=== PATIENT | male | born 1960 | race Caucasian/White ===

== ENCOUNTER 2019-04-19 11:27 | Inpatient (IN) | payer OTHER ==
[2019-04-19] MEDS ORDERED: SODIUM CHLORIDE 1,000 ML IV STA (12:11)
--- NOTE | 2019-04-19 12:13 | PDOC ---
History of Present Illness - General History Source: Patient Exam Limitations: No Limitations, Clinical Condition - History of Present Illness Initial Comments: Orlin Moraes is a 59 yo M w a hx of non-Hodgkin lymphoma 15 years ago in remission not on medications, BPH, and HTN who presents to the [facility] er with 3 weeks of diffuse head and neck pain. The patient states when he bends over his head hurts and he gets a bad headache. The headaches come and go around 5-10 times a day. They feel like diffuse pressure sensations. The patient also says he has been losing weight over the past 3 weeks as well as feels generalized malaise and a significant amount of generalized weakness. He feels nauseous most of the time and has not been able to eat well. He states the headaches come on gradually, are not sudden in onset, and last anywhere between 30 minutes to many hours. Before coming to the hospital today the patient went to his cardiologists office - Dr. Cardenas who said everything is fine except he has a LBBB which has been present for many years without changes or worsening. MEDS: He has not taken any Tylenol yet today but states he has occasionally taken 3 or 4 thousand MG of tylenol on other days this week. He does not believe the tylenol has been helping his headaches very much. He was prescribed Losartan by his prior PCP for hypertension but he has not been adherent with his losartan because he thinks it makes him feel weird and contributes to his headaches. He reports that he was prescribed bactrim by his urologist which he is supposed to take 2 days before going through a transrectal biopsy of his prostate which he has yet to schedule. The patient has taken his bactrim early because he was concerned that he had meningitis from these headaches although he denies ever having fevers. He does endorse occasional chills from time to time. Lastly, he states that he takes between 25 and 100 mg of benadryl every night before bed. The patient is also taking a significant amount of oxymetazoline every night for sinus congestions as well as phenylephrine. He denies any numbness, tingling, unilateral weakness (But endorses generalized weakness). Denies facial weakness, word slurring, chest pain, SOB, difficulty breathing, vomiting, diarrhea, or constipation. Denies blurry vision. PCP: Rhett Mccracken Mold Checker: Dr. Cardenas PSH: Varicocelectomy Social Hx: Lives in an apartment by himself and is independent in his ADL. Former alcohol drinker. Denies any alcohol cigarettes or illicit drug usage in the past 3 weeks. Allergies: ragweed, dust, pollen, NKDA <Esvin Martínez - Last Filed: 04/19/19 22:07> <Kena Samayoa - Last Filed: 04/20/19 09:27> - General Chief Complaint: Weakness Stated Complaint: PAIN Time Seen by Provider: 04/19/19 11:58 Past History - Past Medical History COPD: No - Psycho Social/Smoking Cessation Hx Smoking History: Never smoked <Esvin Martínez - Last Filed: 04/19/19 22:07> <Kena Samayoa - Last Filed: 04/20/19 09:27> - Past Medical History Allergies/Adverse Reactions: Allergies Allergy/AdvReac Type Severity Reaction Status Date / Time No Known Allergies Allergy Verified 04/19/19 11:48 Home Medications: Ambulatory Orders Diphenhydramine [Benadryl -] mg PO HS 04/19/19 Ergocalciferol (Vitamin D2) [Vitamin D2] 1 tab PO WEEKLY 04/19/19 Losartan Potassium [Cozaar -] 50 mg PO DAILY 04/19/19 Montelukast Sodium [Singulair] 10 mg PO HS 04/19/19 Oxymetazoline 0.05% Nasal Soln [Afrin -] 2 spray NS BID 04/19/19 Phenylephrine HCl [Sinus PE Decongestant] 10 mg PO ASDIR 04/19/19 Vitamin B Complex 1 tab PO DAILY 04/19/19 Review of Systems - Review of Systems Able to Perform ROS?: Yes Comments:: CONSTITUTIONAL: Present: generalized weakness, malaise, loss of appetite, chills Absent: fever, diaphoresis HEENT: Absent: rhinorrhea, nasal congestion, throat pain, throat swelling, difficulty swallowing, mouth swelling, ear pain, eye pain, visual Changes CARDIOVASCULAR: Absent: chest pain, syncope, palpitations, irregular heart rate, lightheadedness , peripheral edema RESPIRATORY: Absent: cough, shortness of breath, dyspnea with exertion, orthopnea, wheezing, stridor, hemoptysis GASTROINTESTINAL: Present: Nausea Absent: abdominal pain, abdominal distension, vomiting, diarrhea, constipation, melena, hematochezia GENITOURINARY: Present: Hesitancy Absent: dysuria, frequency, urgency, hematuria, flank pain, genital pain MUSCULOSKELETAL: Absent: myalgia, arthralgia, joint swelling SKIN: Absent: rash, itching, pallor HEMATOLOGIC/IMMUNOLOGIC: Absent: easy bleeding, easy bruising, lymphadenopathy, frequent infections ENDOCRINE: Present: unexplained weight loss Absent: unexplained weight gain, heat intolerance, cold intolerance NEUROLOGIC: Present: Headache Absent: Focal weakness or paresthesias, dizziness, unsteady gait, seizure, mental status changes, bladder or bowel incontinence PSYCHIATRIC: Absent: anxiety, depression, suicidal or homicidal ideation, hallucinations. <Esvin Martínez - Last Filed: 04/19/19 22:07> *Physical Exam - Vital Signs Last Vital Signs Temp Pulse Resp BP Pulse Ox 97.7 F 100 H 18 174/95 H 98 04/19/19 11:45 04/19/19 11:45 04/19/19 11:45 04/19/19 11:45 04/19/19 11:45 - Physical Exam GENERAL: Well developed, well nourished. Awake and alert. Mild acute distress. HEENT: Normocephalic, atraumatic. PERRLA, EOMI. No conjunctival pallor. Sclera are non- icteric. Moist mucous membranes. Oropharynx is clear. NECK: Supple. Full ROM. No JVD. No lymphadenopathy CARDIOVASCULAR: Tachycardic rate. Regular rhythm. No murmurs, rubs, or gallops. Distal pulses are 2+ and symmetric. PULMONARY: No evidence of respiratory distress. Lungs clear to auscultation bilaterally. No wheezing, rales or rhonchi. ABDOMINAL: Soft. Non-tender. Non-distended. No rebound or guarding. No organomegaly. Normoactive bowel sounds. MUSCULOSKELETAL Normal range of motion at all joints. No bony deformities or tenderness. No CVA tenderness. EXTREMITIES: No cyanosis. No clubbing. No edema. No calf tenderness. SKIN: Warm and dry. Normal capillary refill. No rashes. No jaundice. NEUROLOGICAL: Alert, awake, appropriate. Cranial nerves 2-12 intact. No deficits to light touch in face, upper extremities and lower extremities. No motor deficits in the in face, upper extremities and lower extremities. Normal speech. Gait is normal without ataxia. PSYCHIATRIC: Cooperative. Good eye contact. Concerned mood and concerned affect. <Shayy Martínezian - Last Filed: 04/19/19 22:07> - Vital Signs Last Vital Signs Temp Pulse Resp BP Pulse Ox 98.2 F 93 H 18 153/98 98 04/20/19 00:00 04/20/19 00:00 04/20/19 00:00 04/20/19 00:00 04/20/19 00:05 <SamayoaKena Tobin - Last Filed: 04/20/19 09:27> ED Treatment Course - LABORATORY CBC & Chemistry Diagram: 04/19/19 12:30 04/19/19 12:14 - RADIOLOGY Radiology Studies Ordered: Category Date Time Status CERVICAL SPINE CT W/O CONTR [CT] Stat CT Scan 04/19/19 12:[address] WITHOUT CONTRAST [CT] Stat CT Scan 04/19/19 12:12 Ordered Radiograph Interpretation: Head CT: Reason for the study. Rule out mass versus bleed. CT brain C-. Serial axial images of the brain were obtained from foramen magnum to the cranial vertex without intravenous contrast, with coronal, sagittal reconstruction images. No evidence of acute subarachnoid hemorrhage, acute intra-axial or extra -axial fluid collection consistent with subdural or epidural hematoma. No mass effect, midline shift, acute territorial ischemic changes, herniation or edema is present. Normal herndon matter white matter differentiation. The cortical sulci , sylvian fissures, perimesencephalic cisterns are not effaced. Right basal ganglia periventricular space. Normal CSF spaces. No evidence of tonsillar ectopia Examination of the bone windows show no fracture. The visualized paranasal sinuses and mastoid air cells are clear. Impression. No evidence of acute intracranial hemorrhage, edema, midline shift, mass effect, skull fracture. No CT evidence of acute territorial ischemic changes. Cervical CT: Reason for the study. Rule out mass versus metastasis versus of fracture. CT scan of the cervical spine C-. Direct axial images were obtained from the base of the skull through T2-T3 The study was supplemented with computer-generated sagittal, coronal reconstruction images. Findings. Straightening of the cervical spine is noted on the sagittal reconstruction images. Left pleural effusion. Left apical nodular opacity with microcalcifications. No acute fracture, compression deformity, of subluxation is seen. Normal relationship of odontoid to anterior arch of C1. The predental space is not widened Normal symmetrical articulation of atlantoaxial and occipito atlantal joints. Normal height of vertebral bodies. C4-C5. Disc space narrowing. Degenerative endplate sclerosis. Anterior spondylosis. Facet joint arthropathy. Minimal retrolisthesis of C4 on C5. C5-C6. Disc space narrowing. C6 -C7. Disc space narrowing. Mild posterior disc osteophyte complex. Normal alignment of the facet joints. The intraspinal contents cannot be adequately evaluated due to the beam hardening artifacts. The airways are patent. No evidence of prevertebral soft tissue swelling. No airspace opacities are seen in the right apical region. No definite blastic or lytic changes are noted. Posterior nuchal calcifications. Impression. Moderate left pleural effusion. Left apical nodular opacity with microcalcifications. CT of the chest recommended. Chronic degenerative discogenic disease: C4-C5, C5-C6, C6-C7. No acute fracture seen. No definite blastic or lytic changes are seen within limitation of examination. The findings were discussed with Dr. Wali Mcallister. Chest CT: CT CHEST: INDICATION: Evaluate for possible malignancy PROCEDURE: Multiple CT images through the chest are performed without intravenous administration of contrast. PRIOR: None FINDINGS: There is moderate left pleural effusion present with suggestion of a focal pulmonary nodule in the left upper lung near the top of the major fissure measuring 1.8 cm in diameter. Please note fluid does track into the fissure however there is suggestion of a perifissural mass in the mid aspect of the left lower lung measuring up to 3 cm in diameter. Right lung appears free of disease. Thoracic aorta shows no evidence of aneurysmal dilatation or dissection. Cardiac structures are grossly within normal limits. Coronary Arteries show moderate calcifications. The pulmonary arteries are widely patent with no evidence of pulmonary emboli. No significant axillary or mediastinal lymphadenopathy is appreciated. Limited evaluation the upper abdomen shows hepatic and splenic parenchyma to be within normal limits. IMPRESSION: Left pleural effusion with suspicion of more than one lung lesion. Correlation with PET /CT and/or thoracentesis or biopsy may prove useful as clinically indicated. <Esvin Martínez - Last Filed: 04/19/19 22:07> - LABORATORY CBC & Chemistry Diagram: 04/20/19 07:25 04/20/19 07:25 - ADDITIONAL ORDERS Additional order review: 04/19/19 12:50 Urine Culture - Final Urine - Urine Clean Catch NO GROWTH OBTAINED 04/19/19 12:30 RBC 4.80 MCV 88.3 MCHC 34.2 RDW 14.8 MPV 7.6 Neutrophils % 76.6 Lymphocytes % 15.0 Monocytes % 7.5 Eosinophils % 0.5 Basophils % 0.4 - Medications Given in the ED: ED Medications Discontinued Medications Generic Name Dose Route Start Last Admin Trade Name Margaret PRN Reason Stop Dose Admin Acetaminophen 1,000 mg 04/19/19 12:17 04/19/19 12:36 Ofirmev Injection - IVPB 04/19/19 12:18 1,000 mg ONCE ONE Administration Sodium Chloride 1,000 mls @ 1,000 mls/hr 04/19/19 12:11 04/19/19 12:33 Normal Saline - IV 04/19/19 13:10 1,000 mls/hr ASDIR STA Administration Ketorolac Tromethamine 30 mg 04/19/19 14:59 04/19/19 15:19 Toradol Injection - IVPUSH 04/19/19 15:00 30 mg ONCE ONE Administration Losartan Potassium 50 mg 04/19/19 18:28 04/19/19 19:00 Cozaar - PO 04/19/19 18:29 50 mg ONCE ONE Administration Melatonin 3 mg 04/19/19 18:27 04/19/19 20:35 Melatonin PO 04/19/19 18:28 Not Given HS ONE Metoclopramide HCl 10 mg 04/19/19 14:59 04/19/19 15:19 Reglan Injection - IVPUSH 04/19/19 15:00 10 mg ONCE ONE Administration <Kena Samayoa - Last Filed: 04/20/19 09:27> Medical Decision Making - Medical Decision Making Orlin Moraes is a 59 yo M w a hx of non-Hodgkin lymphoma 15 years ago in remission not on medications, BPH, and HTN who presents to the [facility] er with 3 weeks of diffuse head and neck pain. The patient states when he bends over his head hurts and he gets a bad headache. The headaches come and go around 5-10 times a day. They feel like diffuse pressure sensations. The patient also says he has been losing weight over the past 3 weeks as well as feels generalized malaise and a significant amount of generalized weakness. He feels nauseous most of the time and has not been able to eat well. He states the headaches come on gradually, are not sudden in onset, and last anywhere between 30 minutes to many hours. Vital Signs Temp Pulse Resp BP Pulse Ox 97.7 F 100 H 18 174/95 H 98 04/19/19 11:45 04/19/19 11:45 04/19/19 11:45 04/19/19 11:45 04/19/19 11:45 - Tachycardic - Hypertensive DDx IBNLT: intracranial mass vs metastasis, brain bleed - subdural bleed vs other, malignancy/return of non-Hodgkin/secondary malignancy, electrolyte/ metabolic disturbance, anemia, UTI/Pylo, medication induced headaches, medication non-compliance/polypharmacy, hypertensive emergency/urgency Plan: Labs, Head/neck CT, urine, EKG, IV hydration, analgesia, re-assess Labs: Cbc WNL. CMP unremarkable. acetaminophen undetectable. Urine: No signs of infection EKG: NS rate of 97, LAD, LBBB, Left atrial enlargement Head CT: Unremarkable Cervical CT: Large left pleural effusion - will obtain Chest CT Chest CT: Suggestive of malignancy Re-assessment: I have counseled the patient that he is taking a dangerous amount of medications at home. I have told him he should not be using oxymetazoline on a daily basis as this is a very dangerous medication. He has not been prescribed this medication just buying it over the counter. Disposition: Admit to med/surg for workup <Esvin Martínez - Last Filed: 04/19/19 22:07> Discharge - Discharge Information Problems reviewed: Yes - Admission Yes <Esvin Martínez - Last Filed: 04/19/19 22:07> <Kena Samayoa - Last Filed: 04/20/19 09:27> - Discharge Information Clinical Impression/Diagnosis: Pleural effusion, left, Headache, Hypertension Lung malignancy Qualifiers: Laterality: left Lung location: unspecified part of lung Qualified Code(s): C34.92 - Malignant neoplasm of unspecified part of left bronchus or lung Condition: Stable
[2019-04-19] MEDS ORDERED: ACETAMINOPHEN 1000 MG/100 ML VIAL (NON FORMULARY) IVPB ONE (12:17)
[2019-04-19] MEDS ORDERED: ACETAMINOPHEN INJECTION 100 ML IVPB ONE (12:20)
[2019-04-19 12:47] LABS: BASO % 0.4 % (0-2.0); EOS % 0.5 % (0-4.5); HEMATOCRIT 42.4 % (35.4-49); HEMOGLOBIN 14.5 GM/dL (11.7-16.9); MCH 30.2 pg (25.7-33.7); MCHC 34.2 g/dl (32.0-35.9); MEAN CELL VOLUME 88.3 fl (80-96); MEAN PLT VOLUME 7.6 fl (7.5-11.1); MONO % 7.5 % (3.8-10.2); NEUT % 76.6 % (42.8-82.8); PLATELET COUNT 375 K/MM3 (134-434); RDW 14.8 % (11.9-15.9); WHITE BLOOD COUNT 7.4 K/mm3 (4.0-10.0)
[2019-04-19 12:59] LABS: PH,URINE 6.5 (5.0-8.0); URINE APPEARANCE CLEAR; URINE BILIRUBIN NEGATIVE (NEGATIVE); URINE COLOR YELLOW; URINE GLUCOSE (UA) NEGATIVE (NEGATIVE); URINE KETONE NEGATIVE (NEGATIVE); URINE LEUK ESTERASE NEGATIVE (NEGATIVE); URINE NITRITE NEGATIVE (NEGATIVE); URINE PROTEIN NEGATIVE (NEGATIVE); URINE UROBILINOGEN 0.2 mg/dL (0.2-1.0)
[2019-04-19 13:14] LABS: ALBUMIN 4.4 g/dl (3.4-5.0); BILIRUBIN,TOTAL 0.6 mg/dL (0.2-1); BLOOD UREA NITROGEN 14.5 mg/dL (7-18); CALCIUM 9.6 mg/dL (8.5-10.1); CREATININE 0.8 mg/dL (0.55-1.3); POTASSIUM 3.9 mmol/L (3.5-5.1); TOT PROT 7.5 g/dl (6.4-8.2)
--- NOTE | 2019-04-19 13:16 | PDOC ---
Attending Attestation - Resident Resident Name: Esvin Martínez - ED Attending Attestation I have performed the following: I have examined & evaluated the patient, The case was reviewed & discussed with the resident, I agree w/resident's findings & plan - HPI HPI: 04/19/19 13:16 Orlin Moraes is a 59 yo M w a hx of non-Hodgkin lymphoma 15 years ago in remission not on medications, BPH, and HTN who presents to the [facility] er with 3 weeks of diffuse head and neck pain. worse with bending over. headache described as diffuse, pressure like. The patient states when he bends over his head hurts and he gets a bad headache. The headaches come and go around 5-10 times a day. They feel like diffuse + generalized malaise and a significant amount of generalized weakness.+ nausea and has not been able to eat well, associated with chronic cough and shortness of breath and weight loss. He states the headaches come on gradually, are not sudden in onset, and last anywhere between 30 minutes to many hours. Before coming to the hospital today the patient went to his cardiologists office - Dr. Cardenas who said everything is fine except he has a LBBB which has been present for many years without changes or worsening. He has not taken any Tylenol yet today but states he has occasionally taken 3 or 4 thousand MG of tylenol on other days this week. no relief with the tylenol. He was prescribed Losartan by his prior PCP for hypertension but he has not been adherent with his losartan 2/2 side effect of headache/dizziness. He reports that he was prescribed bactrim by his urologist which he is supposed to take 2 days before going through a transrectal biopsy of his prostate which he has yet to schedule. The patient has taken his bactrim early because he was concerned that he had meningitis from these headaches although he denies ever having fevers. Lastly, he states that he takes between 25 and 100 mg of benadryl every night before bed. The patient is also taking a significant amount of oxymetazoline every night for sinus congestions as well as phenylephrine. 04/19/19 16:37 - Physicial Exam PE: 04/19/19 13:18 Agree with the resident's HPI and PE as documented in the electronic medical record. NAD, alert, oriented appropriately, malaised appearing, EOMI, PERRL, nl conjunctiva, anicteric; neck supple. lungs clear, RRR, abdomen soft nontender. no rebound, guarding. Back nontender. PEREZ x4, no focal neuro deficits. No peripheral edema. normal color for ethnicity, WWP. CN II-XII grossly intact. Strength prox and distally 5/5 throughout. Sensation grossly intact to light touch. PEREZ x4. Speech clear. 04/19/19 16:38 04/19/19 18:51 - Medical Decision Making 04/19/19 13:18 Vital Signs Temp Pulse Resp BP Pulse Ox 97.7 F 100 H 18 174/95 H 98 04/19/19 11:45 04/19/19 11:45 04/19/19 11:45 04/19/19 11:45 04/19/19 11:45 MDM: The patient presents with an acute on chronic onset headache for n. Patient has no past history of headaches. There {Is/Is Not} a history of anticoagulation, trauma, , cancer or immunocompromised state. Mental status was nor x 3 weeks. no neurological deficits were noted. Differential Diagnosis considered includes hypertensive emergency, subarachnoid hemorrhage, meningitis, trauma, CVA, migraine. VS notable for mild tachycardia, hypertensive - not compliant with meds. no fever or systemic findings/features. Based on the patient's history and physical there is very low clinical suspicion for significant intracranial pathology. The headache was NOT sudden onset, NOT maximal at onset, there are NO neurologic findings, the patient does NOT have a fever, the patient does NOT have any jaw claudication, the patient does NOT endorse a clotting disorder, patient DENIES any trauma or eye pain and the headache is NOT associated with dizziness or ataxia. Will treatment the patient symptomatically and reassess. Kernig and Brudzinski signs are negative, no petechiae, no photophobia, no dysarthria, no facial asymmetry, and no focal deficits. Very low clinical suspicion for meningitis.Patient denies new weakness on one side of the body, diplopia, vertigo, slurred speech, headache, or difficulty walking. Moderate left-sided pleural effusion, left-sided lung masses noted, the pleural fluid does track into the fissure. No mediastinal lymphadenopathy is noted, patent pulmonary arteries, no evidence of embolism. May benefit from PET scan or thoracentesis/biopsy for further evaluation of the lung mass. pt is poor followup, med noncompliant, unsafe for discharge, acute with chronic symptoms but with weight loss, decreased intake, cough/sob and his chronic headache, admission for continued medical management. 04/19/19 16:36 04/19/19 16:38 04/19/19 16:39 04/19/19 18:51 Heart Score/ECG Review #1 ECG reviewed & interpreted by me at: 14:55 General ECG Interpretation: Sinus Rhythm, Normal Rate 04/19/19 15:06 Normal sinus rhythm at 97 bpm, left bundle branch block is noted, left axis deviation, appropriate discordance is noted
[2019-04-19] MEDS ORDERED: METOCLOPRAMIDE HCL INJECTION 10 MG/2 ML VIAL IVPUSH ONE (14:59)
[2019-04-19] MEDS ORDERED: KETOROLAC TROMETHAMINE 30 MG/1 ML VIAL IVPUSH ONE (14:59)
[2019-04-19] MEDS ORDERED: METOCLOPRAMIDE HCL INJECTION 10 MG/2 ML VIAL ONE (15:13)
[2019-04-19] MEDS ORDERED: KETOROLAC TROMETHAMINE 30 MG/1 ML VIAL ONE (15:13)
--- NOTE | 2019-04-19 15:41 | HP ---
CHIEF COMPLAINT: shortness of breath, weakness, headaches, neck pain PCP: Dr. Mcnamara (patient states he has not yet seen Dr. Mcnamara) HISTORY OF PRESENT ILLNESS: Patient is a 59 year old male with a significant past medical history of Non- Hodgkin lymphoma in 1986 in remission s/p chemotherapy, BPH and hypertension. He reports that he has been having 3 weeks of diffuse head and neck pain and difficulty laying flat and feels as though he cannot get enough air when laying flat. Denies chest pain, but shortness of breath has progressively worsened and now sleeps sitting up most of the time. He also states that he has been having headaches, unintentional weight loss, generalized malaise, hoarseness of his voice. He reports that he does not have a PCP currently and was assigned one who he has not yet seen. He went to seen his oil and gas field technician today for an echocardiogram but does not have a primary care doctor. Patient reports non compliance with his BP medications at home, however admits to taking Tylenol almost daily for his chronic headaches. He reports that he takes benadryl every night for insomnia as well as oxymetazoline every night for sinus congestions as well as phenylephrine. He denies any chest pain, denies dizziness. imaging: Chest ct 04/19/19: moderate left-sided pleural effusion, left-sided lung masses noted, the pleural fluid does track into the fissure. No mediastinal lymphadenopathy is noted, patent pulmonary arteries, no evidence of embolism. May benefit from PET scan or thoracentesis/biopsy for further evaluation of the lung mass. ER course was notable for: (1) chest ct with a moderate left pleural effusion, with a left sided lung mass , will keep NPO for possible thoracentesis with IR. (2) head ct negative (3) Recent Travel: none PAST MEDICAL HISTORY: NHL 1986, hypertension, BPH PAST SURGICAL HISTORY: Social History: Smoking: denies Alcohol: denies Drugs: denies Allergies No Known Allergies Allergy (Verified 04/19/19 11:48) HOME MEDICATIONS: Home Medications Medication Instructions Recorded Diphenhydramine [Benadryl -] mg PO HS 04/19/19 Ergocalciferol (Vitamin D2) 1 tab PO WEEKLY 04/19/19 [Vitamin D2] Losartan Potassium [Cozaar -] 50 mg PO DAILY 04/19/19 Montelukast Sodium [Singulair] 10 mg PO HS 04/19/19 Oxymetazoline 0.05% Nasal Soln 2 spray NS BID 04/19/19 [Afrin -] Phenylephrine HCl [Sinus PE 10 mg PO ASDIR 04/19/19 Decongestant] Vitamin B Complex 1 tab PO DAILY 04/19/19 PHYSICAL EXAMINATION Vital Signs - 24 hr 04/19/19 04/19/19 11:45 14:32 Temperature 97.7 F Pulse Rate 100 H Pulse Rate [ 100 H Left] Respiratory 18 18 Rate Blood Pressure 174/95 H Blood Pressure 155/96 [Left Arm] O2 Sat by Pulse 98 Oximetry (%) GENERAL: Awake, alert, and fully oriented, in no acute distress. voice hoarseness/darkened tongue HEAD: Normal with no signs of trauma. EYES: Pupils equal, round and reactive to light, extraocular movements intact, sclera anicteric, conjunctiva clear. No lid lag. EARS, NOSE, THROAT: Ears normal, nares patent, oropharynx clear without exudates. Moist mucous membranes. NECK: Normal range of motion, supple without lymphadenopathy, JVD, or masses. LUNGS: Breath sounds equal, clear to auscultation bilaterally. diminished at the bases HEART: Regular rate and rhythm ABDOMEN: Soft, nontender, not distended, normoactive bowel sounds, no guarding, no rebound, no masses. No hepatomegaly or splenomegaly. MUSCULOSKELETAL: No CVA tenderness. UPPER EXTREMITIES: No peripheral edema. LOWER EXTREMITIES: No peripheral edema. NEUROLOGICAL: Normal speech. Normal gait. PSYCHIATRIC: Cooperative. Good eye contact. Appropriate mood and affect. SKIN: Warm, dry, normal turgor, no rashes or lesions noted, normal capillary refill. Laboratory Results - last 24 hr 04/19/19 04/19/19 04/19/19 12:14 12:30 12:33 WBC 7.4 RBC 4.80 Hgb 14.5 Hct 42.4 MCV 88.3 MCH 30.2 MCHC 34.2 RDW 14.8 Plt Count 375 D MPV 7.6 Absolute Neuts (auto) 5.7 Neutrophils % 76.6 Lymphocytes % 15.0 Monocytes % 7.5 Eosinophils % 0.5 Basophils % 0.4 Nucleated RBC % 0 Sodium 135 L Potassium 3.9 Chloride 102 Carbon Dioxide 26 Anion Gap 7 L BUN 14.5 Creatinine 0.8 Est GFR (CKD-EPI)AfAm 112.53 Est GFR (CKD-EPI)NonAf 97.10 Random Glucose 99 Calcium 9.6 Total Bilirubin 0.6 AST 20 ALT 46 Alkaline Phosphatase 121 H Total Protein 7.5 Albumin 4.4 Urine Color Urine Appearance Urine pH Ur Specific [place] Urine Protein Urine Glucose (UA) Urine Ketones Urine Blood Urine Nitrite Urine Bilirubin Urine Urobilinogen Ur Leukocyte Esterase Acetaminophen <2.0 04/19/19 12:50 WBC RBC Hgb Hct MCV MCH MCHC RDW Plt Count MPV Absolute Neuts (auto) Neutrophils % Lymphocytes % Monocytes % Eosinophils % Basophils % Nucleated RBC % Sodium Potassium Chloride Carbon Dioxide Anion Gap BUN Creatinine Est GFR (CKD-EPI)AfAm Est GFR (CKD-EPI)NonAf Random Glucose Calcium Total Bilirubin AST ALT Alkaline Phosphatase Total Protein Albumin Urine Color Yellow Urine Appearance Clear Urine pH 6.5 Ur Specific [place] 1.012 Urine Protein Negative Urine Glucose (UA) Negative Urine Ketones Negative Urine Blood Negative Urine Nitrite Negative Urine Bilirubin Negative Urine Urobilinogen 0.2 Ur Leukocyte Esterase Negative Acetaminophen ASSESSMENT/PLAN: Family Medical History Family History: Denies Problem List - Problem (1) Pleural effusion, left Assessment/Plan: Chest ct 04/19/19: moderate left-sided pleural effusion, left-sided lung masses noted. May benefit from PET scan or thoracentesis/biopsy for further evaluation of the lung mass. will ask IR to evaluate pulmonary consulted Code(s): J90 - PLEURAL EFFUSION, NOT ELSEWHERE CLASSIFIED (2) Lesion of lung Assessment/Plan: Per chest CT, left sided lung mass noted with moderate left sided pleural effusion and lung lesions no airway compromise monitor vitals pre and post prior to discharge Code(s): R91.1 - SOLITARY PULMONARY NODULE (3) Hypertension Assessment/Plan: patient non compliant with home medications. also reports he has not seen a PCP in some time. He is a poor follow up. Re-start home medications Code(s): I10 - ESSENTIAL (PRIMARY) HYPERTENSION (4) Weight decrease Code(s): R63.4 - ABNORMAL WEIGHT LOSS (5) Voice hoarseness Assessment/Plan: etiology of voice hoarseness unclear no airway compromise speech and swallow eval ordered Code(s): R49.0 - DYSPHONIA Visit type - Emergency Visit Emergency Visit: Yes ED Registration Date: 04/19/19 Care time: The patient presented to the Emergency Department on the above date and was hospitalized for further evaluation of their emergent condition. - New Patient This patient is new to me today: Yes Date on this admission: 04/20/19 - Critical Care Critical Care patient: No
[2019-04-19 18:01] LABS: INR 1.02 (0.83-1.09)
[2019-04-19] MEDS ORDERED: MELATONIN 1 MG TABLET PO ONE (18:27)
[2019-04-19] MEDS ORDERED: LOSARTAN POTASSIUM 50 MG TABLET (FP) PO ONE (18:28)
[2019-04-19] MEDS ORDERED: SODIUM CHLORIDE NASAL SPRAY 44 ML BOTTLE NS PRN (18:34)
[2019-04-19] MEDS ORDERED: ACETAMINOPHEN 325 MG TABLET (FP) PO PRN (18:38)
[2019-04-19] MEDS ORDERED: MONTELUKAST NA 10 MG TABLET ONE (18:57)
[2019-04-19] MEDS ORDERED: MELATONIN 5 MG TABLETS ONE (18:57)
[2019-04-19] MEDS ORDERED: LOSARTAN POTASSIUM 50 MG TABLET (FP) ONE (18:57)
[2019-04-19] MEDS: MELATONIN 1 MG TABLET PO SCH (19:01)
[2019-04-19] MEDS: MONTELUKAST NA 10 MG TABLET PO SCH (21:18)
[2019-04-20 07:48] LABS: HEMATOCRIT 37.3 % (35.4-49); HEMOGLOBIN 12.9 GM/dL (11.7-16.9); MCH 30.4 pg (25.7-33.7); MCHC 34.6 g/dl (32.0-35.9); MEAN PLT VOLUME 7.5 fl (7.5-11.1); PLATELET COUNT 344 K/MM3 (134-434); RBC 4.24 M/mm3 (4.00-5.60); RDW 14.8 % (11.9-15.9); WHITE BLOOD COUNT 5.2 K/mm3 (4.0-10.0)
[2019-04-20 08:30] LABS: ANION GAP 5 MMOL/L (8-16); BLOOD UREA NITROGEN 11.8 mg/dL (7-18); CALCIUM 9.3 mg/dL (8.5-10.1); CHLORIDE 106 mmol/L (98-107); CO2 28 mmol/L (21-32); CREATININE 0.7 mg/dL (0.55-1.3); GLUCOSE,RANDOM 83 mg/dL (74-106); MAGNESIUM 2.1 mg/dL (1.8-2.4); POTASSIUM 4.2 mmol/L (3.5-5.1); SODIUM 139 mmol/L (136-145)
[2019-04-20 08:54] LABS: INR 1.06 (0.83-1.09); PROTHROMBIN TIME (PATIENT) 12.5 SEC (9.7-13.0)
[2019-04-20 08:57] LABS: N-TERMINAL BNP 1267.5 pg/ml (5-125)
[2019-04-20] MEDS ORDERED: PNEUMOC 13-VAL CONJ-DIP CRM/PF 0.5 ML DISP.SYRIN IM ONE (10:00)
[2019-04-20] MEDS: LOSARTAN POTASSIUM 50 MG TABLET (FP) PO SCH (10:16)
[2019-04-20] MEDS ORDERED: SODIUM CHLORIDE 1,000 ML IV SCH (10:30)
--- NOTE | 2019-04-20 10:47 | CON.CARD ---
Consult Consult Specialty:: Cardiology Referred by:: Dr. Mendel Preston Reason for Consultation:: abnl ECG - History of Present Illness Chief Complaint: headache History of Present Illness: Patient is a 59 year old male with a significant past medical history of Non- Hodgkin lymphoma in 1986 in remission s/p chemotherapy, BPH and hypertension. He reports that he has been having 3 weeks of diffuse head and neck pain and difficulty laying flat and feels as though he cannot get enough air when laying flat. Denies chest pain, but shortness of breath has progressively worsened and now sleeps sitting up most of the time. He also states that he has been having headaches, unintentional weight loss, generalized malaise, hoarseness of his voice. He reports that he does not have a PCP currently and was assigned one who he has not yet seen. He went to seen his forestry instructor today for an echocardiogram but does not have a primary care doctor. Patient reports non compliance with his BP medications at home, however admits to taking Tylenol almost daily for his chronic headaches. He reports that he takes benadryl every night for insomnia as well as oxymetazoline every night for sinus congestions as well as phenylephrine. He denies any chest pain, denies dizziness. imaging: Chest ct 04/19/19: moderate left-sided pleural effusion, left-sided lung masses noted, the pleural fluid does track into the fissure. No mediastinal lymphadenopathy is noted, patent pulmonary arteries, no evidence of embolism. May benefit from PET scan or thoracentesis/biopsy for further evaluation of the lung mass. ER course was notable for: (1) chest ct with a moderate left pleural effusion, with a left sided lung mass , will keep NPO for possible thoracentesis with IR. (2) head ct negative On my history he denies exertional anginal CP, he has chronic mild HARDIN. No palps. No edema - History Source History Provided By: Patient, Medical Record - Past Medical History Cardio/Vascular: Yes: Other (LBBB) Gastrointestinal: No: Ascites, Cancer, Constipation, Crohn's Disease, Diverticulitis, Diverticulosis, Esophageal Varices, Gastritis, GERD, GI Bleed, Hemorrhoids, Hiatal Hernia, Inflamatory Bowel Disease, Irritable Bowel Disease, Pancreatitis, Peptic Ulcer Disease, Ulcerative Colitis, Other Heme/Onc: Yes: Other (NHL 80s s/p chemo and XRT) - Alcohol/Substance Use Hx Alcohol Use: Yes (occasional) - Smoking History Smoking history: Never smoked Have you smoked in the past 12 months: No - Social History Usual Living Arrangement: Alone History of Recent Travel: No Home Medications - Allergies Allergies/Adverse Reactions: Allergies Allergy/AdvReac Type Severity Reaction Status Date / Time No Known Allergies Allergy Verified 04/19/19 11:48 - Home Medications Home Medications: Ambulatory Orders Diphenhydramine [Benadryl -] mg PO HS 04/19/19 Ergocalciferol (Vitamin D2) [Vitamin D2] 1 tab PO WEEKLY 04/19/19 Losartan Potassium [Cozaar -] 50 mg PO DAILY 04/19/19 Montelukast Sodium [Singulair] 10 mg PO HS 04/19/19 Oxymetazoline 0.05% Nasal Soln [Afrin -] 2 spray NS BID 04/19/19 Phenylephrine HCl [Sinus PE Decongestant] 10 mg PO ASDIR 04/19/19 Vitamin B Complex 1 tab PO DAILY 04/19/19 Review of Systems - Review of Systems Constitutional: reports: Weakness Cardiovascular: denies: No Symptoms, Chest Pain, Edema, Palpitations, Shortness of Breath, Other Respiratory: reports: SOB on Exertion (chronic) Gastrointestinal: denies: No Symptoms, Abdominal Pain, Bloating, Constipation, Diarrhea, Dysphagia, Indigestion, Melena, Nausea, Rectal Bleeding, Vomiting, Vomiting Blood, Other Genitourinary: denies: No Symptoms, Burning, Discharge, Dysuria, Flank Pain, Frequency, Hematuria, Incontinence, Lesions, Menses, Pain, Testicular Mass, Testicular Pain, Testicular Swelling, Urgency, Vaginal Bleeding, Other Musculoskeletal: denies: No Symptoms, Back Pain, Crepitus, Decreased ROM, Extremity Pain, Joint Pain, Joint Swelling, Muscle Pain, Muscle Cramps, Muscle Weakness, Other Neurological: reports: Headache Endocrine: denies: No Symptoms, Excessive Sweating, Flushing, Increased Hunger, Increased Thirst, Intolerance to Cold, Intolerance to Heat, Unexplained Weight Gain, Unexplained Weight Loss, Other Hematology/Lymphatic: denies: No Symptoms, Easily Bruised, Excessive Bleeding, Swollen Glands, Other Psychiatric: denies: No Symptoms, Altered Sleep Pattern, Anxiety, Depression, Hallucinations, Panic, Paranoia, Suicidal, Other - Risk Factors Known Risk Factors: Yes: Hypertension Vital Signs: Vital Signs Temperature 98 F 04/20/19 10:00 Pulse Rate 89 04/20/19 10:00 Respiratory Rate 18 04/20/19 10:00 Blood Pressure 159/101 H 04/20/19 10:00 O2 Sat by Pulse Oximetry (%) 98 04/20/19 00:05 Constitutional: Yes: No Distress Respiratory: Yes: CTA Bilaterally Gastrointestinal: Yes: Soft Cardiovascular: Yes: Regular Rate and Rhythm JVD: No Carotid Bruit: No Heart Sounds: Yes: S1, S2 Peripheral Pulses WNL: Yes Neurological: Yes: Alert - Other Data Labs, Other Data: CBC, BMP 04/20/19 07:25 04/20/19 07:25 INR, PTT INR 1.06 (0.83-1.09) 04/20/19 07:25 Troponin, BNP 04/20/19 07:25 Troponin I < 0.02 B-Natriuretic Peptide 1267.5 H Troponin, BNP 04/20/19 07:25 Troponin I < 0.02 B-Natriuretic Peptide 1267.5 H Laboratory Tests 04/20/19 04/20/19 07:25 07:25 WBC 5.2 Hgb 12.9 Plt Count 344 Sodium 139 Potassium 4.2 Creatinine 0.7 Troponin I < 0.02 B-Natriuretic Peptide 1267.5 H nsr , lbbb Imaging - Results Cat Scan: Report Reviewed EKG: Image Reviewed Assessment/Plan IMP: History NHL now with lef pleural effusion and lung masses Headaches LBBB (chronic as per patient) HTN REC: 1. Work up of lung findings as per PMD, Onc and Pulm 2. Will confirm LBBB is chronic and that prior ischemic evaluation was WNL - patient reports prior normal stress- will review office records 3. Echo 4. Follow BP trend, if remains > 140/90 then titrate Losartan or add HCTZ 5. elevated BNP unclear sig- does not appear volume overloaded. Check echo ( sometimes chronic valve disease or PHTN can elevate the BNP).
--- NOTE | 2019-04-20 11:39 | PN ---
Physical Exam: SUBJECTIVE: Patient seen and examined at the bedside. OBJECTIVE: Patient w/o PCP. Made an appointment for him to be seen as follows New PCP: Dr. Ordaz @ [address] [place] [address] Date: April 24 Time: 1:00pm Patient is a 59 year old male with a significant past medical history of Non- Hodgkin lymphoma in 1986 in remission s/p chemotherapy, BPH and hypertension. He reports that he has been having 3 weeks of diffuse head and neck pain and difficulty laying flat and feels as though he cannot get enough air when laying flat. Denies chest pain, but shortness of breath has progressively worsened and now sleeps sitting up most of the time. He also states that he has been having headaches, unintentional weight loss, generalized malaise, hoarseness of his voice. He reports that he does not have a PCP currently and was assigned one who he has not yet seen. He went to seen his monumental stonemason today for an echocardiogram but does not have a primary care doctor. Patient reports non compliance with his BP medications at home, however admits to taking Tylenol almost daily for his chronic headaches. He reports that he takes benadryl every night for insomnia as well as oxymetazoline every night for sinus congestions as well as phenylephrine. he is s/p thoracentesis today with 420cc/removal of turbid fluid. Period Temp Pulse Resp BP Sys/Peck Pulse Ox Last 24 Hr 97.6 F-98.2 F 89-100 18-20 141-174/78-101 96-99 GENERAL: Awake, alert, and fully oriented, in no acute distress. voice hoarseness/darkened tongue HEAD: Normal with no signs of trauma. EYES: Pupils equal, round and reactive to light, extraocular movements intact, sclera anicteric, conjunctiva clear. No lid lag. EARS, NOSE, THROAT: Ears normal, nares patent, oropharynx clear without exudates. Moist mucous membranes. NECK: Normal range of motion, supple without lymphadenopathy, JVD, or masses. LUNGS: Breath sounds equal, clear to auscultation bilaterally. diminished at the bases HEART: Regular rate and rhythm ABDOMEN: Soft, nontender, not distended, normoactive bowel sounds, no guarding, no rebound, no masses. No hepatomegaly or splenomegaly. MUSCULOSKELETAL: No CVA tenderness. UPPER EXTREMITIES: No peripheral edema. LOWER EXTREMITIES: No peripheral edema. NEUROLOGICAL: Normal speech. Normal gait. PSYCHIATRIC: Cooperative. Good eye contact. Appropriate mood and affect. SKIN: Warm, dry, normal turgor, no rashes or lesions noted, normal capillary refill. Laboratory Results - last 24 hr 04/19/19 04/19/19 04/19/19 12:14 12:30 12:33 WBC 7.4 RBC 4.80 Hgb 14.5 Hct 42.4 MCV 88.3 MCH 30.2 MCHC 34.2 RDW 14.8 Plt Count 375 D MPV 7.6 Absolute Neuts (auto) 5.7 Neutrophils % 76.6 Lymphocytes % 15.0 Monocytes % 7.5 Eosinophils % 0.5 Basophils % 0.4 Nucleated RBC % 0 PT with INR INR PTT (Actin FS) Sodium 135 L Potassium 3.9 Chloride 102 Carbon Dioxide 26 Anion Gap 7 L BUN 14.5 Creatinine 0.8 Est GFR (CKD-EPI)AfAm 112.53 Est GFR (CKD-EPI)NonAf 97.10 Random Glucose 99 Calcium 9.6 Magnesium Total Bilirubin 0.6 AST 20 ALT 46 Alkaline Phosphatase 121 H Troponin I B-Natriuretic Peptide Total Protein 7.5 Albumin 4.4 Urine Color Urine Appearance Urine pH Ur Specific [place] Urine Protein Urine Glucose (UA) Urine Ketones Urine Blood Urine Nitrite Urine Bilirubin Urine Urobilinogen Ur Leukocyte Esterase Acetaminophen <2.0 Blood Type Antibody Screen 04/19/19 04/19/19 04/20/19 12:50 17:40 07:25 WBC 5.2 RBC 4.24 Hgb 12.9 Hct 37.3 MCV 88.0 MCH 30.4 MCHC 34.6 RDW 14.8 Plt Count 344 MPV 7.5 Absolute Neuts (auto) Neutrophils % Lymphocytes % Monocytes % Eosinophils % Basophils % Nucleated RBC % PT with INR 12.00 INR 1.02 PTT (Actin FS) 32.0 Sodium Potassium Chloride Carbon Dioxide Anion Gap BUN Creatinine Est GFR (CKD-EPI)AfAm Est GFR (CKD-EPI)NonAf Random Glucose Calcium Magnesium Total Bilirubin AST ALT Alkaline Phosphatase Troponin I B-Natriuretic Peptide Total Protein Albumin Urine Color Yellow Urine Appearance Clear Urine pH 6.5 Ur Specific [place] 1.012 Urine Protein Negative Urine Glucose (UA) Negative Urine Ketones Negative Urine Blood Negative Urine Nitrite Negative Urine Bilirubin Negative Urine Urobilinogen 0.2 Ur Leukocyte Esterase Negative Acetaminophen Blood Type Antibody Screen 04/20/19 04/20/19 04/20/19 07:25 07:25 07:25 WBC RBC Hgb Hct MCV MCH MCHC RDW Plt Count MPV Absolute Neuts (auto) Neutrophils % Lymphocytes % Monocytes % Eosinophils % Basophils % Nucleated RBC % PT with INR 12.50 INR 1.06 PTT (Actin FS) Sodium 139 Potassium 4.2 Chloride 106 Carbon Dioxide 28 Anion Gap 5 L BUN 11.8 Creatinine 0.7 Est GFR (CKD-EPI)AfAm 118.88 Est GFR (CKD-EPI)NonAf 102.57 Random Glucose 83 Calcium 9.3 Magnesium 2.1 Total Bilirubin AST ALT Alkaline Phosphatase Troponin I < 0.02 B-Natriuretic Peptide 1267.5 H Total Protein Albumin Urine Color Urine Appearance Urine pH Ur Specific [place] Urine Protein Urine Glucose (UA) Urine Ketones Urine Blood Urine Nitrite Urine Bilirubin Urine Urobilinogen Ur Leukocyte Esterase Acetaminophen Blood Type A POSITIVE Antibody Screen Negative 04/20/19 09:50 WBC RBC Hgb Hct MCV MCH MCHC RDW Plt Count MPV Absolute Neuts (auto) Neutrophils % Lymphocytes % Monocytes % Eosinophils % Basophils % Nucleated RBC % PT with INR INR PTT (Actin FS) Sodium Potassium Chloride Carbon Dioxide Anion Gap BUN Creatinine Est GFR (CKD-EPI)AfAm Est GFR (CKD-EPI)NonAf Random Glucose Calcium Magnesium Total Bilirubin AST ALT Alkaline Phosphatase Troponin I B-Natriuretic Peptide Total Protein Albumin Urine Color Urine Appearance Urine pH Ur Specific [place] Urine Protein Urine Glucose (UA) Urine Ketones Urine Blood Urine Nitrite Urine Bilirubin Urine Urobilinogen Ur Leukocyte Esterase Acetaminophen Blood Type A POSITIVE Antibody Screen Active Medications Generic Name Dose Route Start Last Admin Trade Name Margaret PRN Reason Stop Dose Admin Acetaminophen 650 mg 04/19/19 18:38 04/20/19 10:17 Tylenol - PO 650 mg Q6H PRN Administration PAIN LEVEL 4 - 6 Sodium Chloride 1,000 mls @ 83 mls/hr 04/20/19 10:30 Normal Saline - IV ASDIR KENDALL Losartan Potassium 50 mg 04/20/19 10:00 04/20/19 10:16 Cozaar - PO 50 mg DAILY KENDALL Administration Melatonin 1 mg 04/19/19 18:39 04/19/19 19:01 Melatonin PO 1 mg HS KENDALL Administration Montelukast Sodium 10 mg 04/19/19 22:00 04/19/19 21:18 Singulair - PO 10 mg HS KENDALL Administration Sodium Chloride 2 spray 04/19/19 18:34 [place] Tre[place] Nasal Treichlers - NS Q12H PRN NASAL CONGESTION ASSESSMENT/PLAN: Problem List - Problems (1) Pleural effusion, left Assessment/Plan: Chest ct 04/19/19: moderate left-sided pleural effusion, left-sided lung masses noted. s/p thoracentesis today pre and post prior to discharge will need outpatient follow up pulmonary consulted Will need PET scan as an outpatient Code(s): J90 - PLEURAL EFFUSION, NOT ELSEWHERE CLASSIFIED (2) Lesion of lung Assessment/Plan: Per chest CT, left sided lung mass noted with moderate left sided pleural effusion and lung lesions no airway compromise monitor vitals pre and post prior to discharge Code(s): R91.1 - SOLITARY PULMONARY NODULE (3) Hypertension Assessment/Plan: patient non compliant with home medications. also reports he has not seen a PCP in some time. He is a poor follow up. Re-start home medications and made an appointment for PCP follow up Code(s): I10 - ESSENTIAL (PRIMARY) HYPERTENSION (4) Weight decrease Assessment/Plan: 10 lbs loss in 1 year per patient started on supplements, dietary consult Code(s): R63.4 - ABNORMAL WEIGHT LOSS (5) Voice hoarseness Assessment/Plan: etiology of voice hoarseness unclear no airway compromise speech and swallow eval ordered also has darkened tongue that appears to be fungal will order nystatin ENT as an outpatient Code(s): R49.0 - DYSPHONIA Visit type - Emergency Visit Emergency Visit: Yes ED Registration Date: 04/19/19 Care time: The patient presented to the Emergency Department on the above date and was hospitalized for further evaluation of their emergent condition. - New Patient This patient is new to me today: No - Critical Care Critical Care patient: No - Discharge Referral Referred to [facility] No
--- NOTE | 2019-04-20 12:12 | CONSULT ---
Admitting History and Physical - Primary Care Physician PCP: Jeannine Perera - Admission History of Present Illness: 59 year old male with a significant past medical history of Non-Hodgkin lymphoma in 1986 in remission s/p chemotherapy, BPH and hypertension, admitted for headaches, unintentional weight loss, generalized malaise, hoarseness of his voice. NPO for thoracentesis This is my first consult with this pt. Pt reports onset of hoarseness in November, with no variation during the day/night and no improvement or deterioration since. He denies throat pain or Odynophagia. He coughs occasionally while drinking. History Source: Patient, Medical Record Limitations to Obtaining History: No Limitations - Past Medical History Cardiovascular: Yes: Other (LBBB) Gastrointestinal: No: Ascites, Cancer, Constipation, Crohn's Disease, Diverticulitis, Diverticulosis, Esophageal Varices, Gastritis, GERD, GI Bleed, Hemorrhoids, Hiatal Hernia, Inflamatory Bowel Disease, Irritable Bowel Disease, Pancreatitis, Peptic Ulcer Disease, Ulcerative Colitis, Other Heme/Onc: Yes: Other (NHL 80s s/p chemo and XRT) - Smoking History Smoking history: Never smoked Have you smoked in the past 12 months: No - Alcohol/Substance Use Hx Alcohol Use: Yes (occasional) - Social History ADL: Independent 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 No mediastinal lymphadenopathy is noted, patent pulmonary arteries, no evidence of embolism. May benefit from PET scan or thoracentesis/biopsy for further evaluation of the lung mass.) - General Mental Status: Alert and Oriented, Awake and Alert, Able to Follow Commands Attention: Intact Ability to Follow Directions: Excellent Head/Neck Control: WFL - Hearing Hearing: Normal Speech Evaluation - Communication Primary Language: POLISH Oral Expression Ability: Yes: No Impairment - Speech Production Able to Make Needs Known: Yes: WNL Intelligibility: Yes: Mildly Impaired - Speech Characteristics Voice Loudness: Mildly Soft/Quiet Voice Pitch: Yes: Pitch Breaks Voice Phonatory-based Quality: Yes: Hoarse, Strident, Dysphonia Speech Clarity: < 100% Nasal Resonance: Normal Articulation: Yes: Precise Rate of Speech: Intact - Language/Auditory Comprehension Follows: Yes: 2 Stage Simple Commands - Language/Verbal Expression Able to Respond to Simple Queries: Yes: WNL Able to Communicate Wants and Needs: Yes: WNL Functional Communication Status: Yes: WNL - Memory/Perception intermission coordinator Memory: Yes: WNL Short Term Memory: Yes: WNL - Swallow Evaluation/Bedside Assessment Current Nutritional Intake: Regular, Thin Liquids Oral Secretions: Yes: WFL, Tongue Coated (dorsum and posterior tongue is black-r /o bacteria/fungus. possibly in hypopharynx?) Dentition: Yes: Adequate Facial Symmetry on Retraction: Symmetrical Facial Movement: Controlled Against Resistance Opening: Normal Against Resistance Closing: Normal Pucker Lips: Normal Smile: Normal Lingual Movement: Normal, Symmetric Lingual Speed of Movement: Normal Velopharyngeal Movement: Normal Laryngeal Elevation: WFL Laryngeal Movement: Able to Palpate Rate of Intake: WFL Bolus Size: WFL Labial Seal: WFL Chewing: WFL Oral Prep Time: WFL A-P Transit: WFL Pocketing: None Timing of Swallow: WFL Coughing/Throat Clear: No (3 oz water test) Change in Voice: No Recommendations - Speech Evaluation, Impression/Plan Impression: Moderate dysphonia, onset in November, r/o vocal cord paralysis. Reports occasional cough response to thin liquids, "if not careful". 3 oz water test (-). Dorsum and posterior tongue is black-r/o bacteria/fungus. possibly in hypopharynx? - Dysphagia Impressions/Plan Dysphagia Impressions: Minimal Impairment, Risk of Aspiration *Silent aspiration: cannot be R/O at bedside Recommendations: ENT Consult (r/o vocal cord paralysis. Fungal infection), Modified Barium Swallow (as out pt, if vocal cord is paralyzed.), Other (r/o Fungal infection on tongue/ pharynx?(consider trial of fungal treatment if not medically contraindicated) - Recommendations Diet Consistency: Regular Medication Administration: Whole with water Liquids: Thin Liquids
--- NOTE | 2019-04-20 13:19 | EKG ---
Test Reason : Blood Pressure : / mmHG Vent. Rate : 097 BPM Atrial Rate : 097 BPM P-R Int : 206 ms QRS Dur : 154 ms QT Int : 400 ms P-R-T Axes : 044 -44 124 degrees QTc Int : 508 ms NORMAL SINUS RHYTHM POSSIBLE LEFT ATRIAL ENLARGEMENT LEFT AXIS DEVIATION LEFT BUNDLE BRANCH BLOCK ABNORMAL ECG NO PREVIOUS ECGS AVAILABLE Confirmed by JADON ALMEIDA MD ([id number]) on 04/20/2019 1:19:33 PM Referred By: Confirmed By:JADON ALMEIDA MD
[2019-04-20] MEDS: metoPROLOL SUCCINATE 25 MG TAB.SR.24H (FP) PO SCH (13:48)
[2019-04-20 15:28] LABS: BF WBC & OTHER NUCLEATED CELLS 1039 /mm3
--- NOTE | 2019-04-20 15:51 | PN ---
Progress Note (short form) - Note Progress Note: PULMONARY CONSULTATION DICTATED 04/20/19 IMP LEFT PLEURAL EFFUSION ?MALIGNANT PULMONARY NODULES HEADACHES H/O NON-HODGKINS LYMPHOMA HTN LBBB HOARSENESS PLAN PLEURAL FLUID CHEMISTRIES,CYTOLOGY PENDING NEURO EVALUATION ECHO MONITOR LYTES CONSIDER ENT EVALUATION DR BALDWIN Problem List - Problems (1) Headache Code(s): R51 - HEADACHE (2) Hypertension Code(s): I10 - ESSENTIAL (PRIMARY) HYPERTENSION (3) Lesion of lung Code(s): R91.1 - SOLITARY PULMONARY NODULE (4) Pleural effusion, left Code(s): J90 - PLEURAL EFFUSION, NOT ELSEWHERE CLASSIFIED (5) Voice hoarseness Code(s): R49.0 - DYSPHONIA (6) Weight decrease Code(s): R63.4 - ABNORMAL WEIGHT LOSS (7) H/O non-Hodgkin's lymphoma Code(s): Z85.72 - PERSONAL HISTORY OF NON-HODGKIN LYMPHOMAS
[2019-04-20 17:03] VITALS: BMI 23.2
--- NOTE | 2019-04-20 18:25 | CONS ---
PULMONARY CONSULTATION DATE OF CONSULTATION: 04/20/2019 REFERRING PHYSICIAN: DILLON Castillo HISTORY: Patient is a 59-year-old white male with past medical history of Non-Hodgkin lymphoma in remission since 1986 status post chemotherapy, BPH, hypertension, nonsmoker. Admitted to [facility] with complaint of a [id number] of diffuse head and neck pain and difficulty lying flat. Also complains of shortness of breath when lying flat. Patient denies any fevers or chills but states that he has progressive shortness of breath and had a weight loss of approximately 6 pounds over the past week. He denies any chest pains or palpitations. He has had hoarseness in the voice since the summertime but did not seek medical attention. Patient denies any history of occupational exposure to chemicals or fumes. There is no history of DVT or PE in the past. There is no history of recent travel. PAST MEDICAL HISTORY: Again includes Non-Hodgkin lymphoma, status post chemotherapy, BPH, hypertension. REVIEW OF SYSTEMS: Positive for headache, positive for neck pain, positive for shortness of breath. No chest pain, no palpitations, no fever. Positive weight loss. Occasional night sweats for the past week. CURRENT MEDICATIONS: Include Fioricet, Cozaar, Toprol, [place] nasal spray, Singulair, melatonin, nystatin. PHYSICAL EXAMINATION: General: Patient is a well-developed, well-nourished male awake, alert in no acute distress. Vital Signs: He is afebrile. Blood pressure 178/108, respiratory rate is 20, O2 saturation is 100% on room air. HEENT: Normocephalic, atraumatic. Neck: Supple. Heart: Regular with S1, S2. Chest: Clear. Abdomen: Soft. Bowel sounds are positive. Extremities: No cyanosis or edema. LABORATORIES: BUN 11, creatinine 0.7, WBC 5.2, hemoglobin 12.9, hematocrit 37.3 with a platelet count of 344,000. INR 1.06. Chest x-ray: Post thoracentesis. No evidence of pneumothorax. Decreased left pleural effusion. CT scan of the chest revealed a large left pleural effusion and some fluid in the major fissure. Focal pulmonary nodule in the left upper lung near the major fissure. Perifissural mass in left lower lung likely secondary retained fluid but cannot exclude component of a solid mass. IMPRESSION: 1. Left pleural effusion, etiology to be determined, rule out malignant. 2. Positive history of Non-Hodgkin lymphoma, rule out possible infectious. 3. Pulmonary nodules, again, rule out possible underlying malignancy, inflammatory. 4. Headaches. 5. Hypertension. 6. Left bundle branch block. PLAN: Fluid chemistry and cytology pending. Consider Neurology evaluation. Obtain echocardiogram. Monitor BP. Monitor electrolytes. Further recommendations to follow pending results of pleural fluid chemistries as well as cytology. CODI BALDWIN M.D. [id number]
[2019-04-20] MEDS: NYSTATIN 500,000 UNITS TABLET PO SCH ×2 (18:35→22:04)
[2019-04-20] MEDS ORDERED: PATIENT'S OWN MEDICATION (NON-FORMULARY) (Fluticasone Propionate [Flovent Diskus] 50 MCG) IH PRN (20:06)
[2019-04-20] MEDS ORDERED: PHENYLEPHRINE HCL 10 MG PO PRN (20:09)
[2019-04-20 20:56] LABS: BODY FLUID MACROPHAGES 30 %; BODY FLUID MESOTHELIAL 9 %
[2019-04-20] MEDS: TAMSULOSIN HCL 0.4 MG CAP PO SCH (22:04)
[2019-04-20] MEDS: MONTELUKAST NA 10 MG TABLET PO SCH (22:04)
[2019-04-20] MEDS: MELATONIN 1 MG TABLET PO SCH (22:05)
[2019-04-21] MEDS: NYSTATIN 500,000 UNITS TABLET PO SCH ×4 (06:59→21:31)
[2019-04-21] MEDS: DOCUSATE SODIUM 100 MG CAPSULE (FP) PO SCH ×2 (06:59→09:26)
[2019-04-21] MEDS: metoPROLOL SUCCINATE 25 MG TAB.SR.24H (FP) PO SCH (09:26)
[2019-04-21] MEDS: LOSARTAN POTASSIUM 50 MG TABLET (FP) PO SCH (09:26)
[2019-04-21] MEDS ORDERED: DOCUSATE SODIUM 100 MG CAPSULE (FP) PO SCH (10:00)
--- NOTE | 2019-04-21 10:01 | CONSULT ---
Consult - text type - Consultation Consultation Note: Neurology CHIEF COMPLAINT: shortness of breath, weakness, headaches, neck pain PCP: Dr. Mcnamara (patient states he has not yet seen Dr. Mcnamara) HISTORY OF PRESENT ILLNESS: Patient is a 59 year old male with a significant past medical history of Non- Hodgkin lymphoma in 1986 in remission s/p chemotherapy, BPH and hypertension. He reports that he has been having 3 weeks of diffuse head and neck pain and difficulty laying flat and feels as though he cannot get enough air when laying flat. Denies chest pain, but shortness of breath has progressively worsened and now sleeps sitting up most of the time. He also states that he has been having headaches, unintentional weight loss, generalized malaise, hoarseness of his voice. He reports that he does not have a PCP currently and was assigned one who he has not yet seen. He went to seen his youth services librarian on day of admission prior to coming to the ER, for an echocardiogram but does not have a primary care doctor. Patient reports non compliance with his BP medications at home, however admits to taking Tylenol almost daily for his chronic headaches. He reports that he takes benadryl every night for insomnia as well as oxymetazoline every night for sinus congestions as well as phenylephrine. He denies any chest pain, denies dizziness. Pt has elevated BNP 1267. Consulted regarding headaches and patient reports they've been occuring for years. SLightly tangential in his description but mostly frontal with associated neck pain. Head CT complete, no acute pathology. Chest CT indicates moderate left-sided pleural effusion with left-sided lung masses noted, the pleural fluid does track into the fissure. Patient had thoracentisis for removal of fluid and biopsy, 420cc of fluid removed. Pt had cervical spine CT, correlation of moderate left pleural effusion and left apical nodular opacity with microcalcifications, chronic degenerative changes, no fracture noted. Discussed this with him and provided reassurance that no significant abnormalities on CT head and C spine. Fioricet prescribed and can be taken as needed. Will add topamax 25mg bid as well. Recent Travel: none PAST MEDICAL HISTORY: NHL 1986, hypertension, BPH PAST SURGICAL HISTORY: Social History: Smoking: denies Alcohol: denies Drugs: denies Family History: HTN Allergies No Known Allergies Allergy (Verified 04/19/19 11:48) Ambulatory Orders Diphenhydramine [Benadryl -] mg PO HS 04/19/19 Ergocalciferol (Vitamin D2) [Vitamin D2] 1 tab PO WEEKLY 04/19/19 Losartan Potassium [Cozaar -] 50 mg PO DAILY 04/19/19 Montelukast Sodium [Singulair] 10 mg PO HS 04/19/19 Oxymetazoline 0.05% Nasal Soln [Afrin -] 2 spray NS BID 04/19/19 Vitamin B Complex 1 tab PO DAILY 04/19/19 Tamsulosin HCl [Flomax] 0.4 mg PO DAILY 04/20/19 Fluticasone Prop 0.05% Nasal [Flonase -] 1 spray NS DAILY PRN 04/21/19 Active Medications Acetaminophen/Butalbital/Caffeine (Fioricet -) 1 tablet PO Q6H PRN PRN Reason: HEADACHE Docusate Sodium (Colace -) 200 mg PO DAILY [facility] Last Admin: 04/21/19 09:26 Dose: Not Given Losartan Potassium (Cozaar -) 50 mg PO DAILY [facility] Last Admin: 04/21/19 09:26 Dose: 50 mg Melatonin (Melatonin) 1 mg PO HS [facility] Last Admin: 04/20/19 22:05 Dose: 1 mg Metoprolol Succinate (Toprol Xl -) 25 mg PO DAILY [facility] Last Admin: 04/21/19 09:26 Dose: 25 mg Montelukast Sodium (Singulair -) 10 mg PO HS [facility] Last Admin: 04/20/19 22:04 Dose: 10 mg Non-Formulary Medication (Fluticasone Propionate [Flovent Diskus]) 50 mcg IH BID PRN PRN Reason: ALLERGIES Non-Formulary Medication (Phenylephrine Hcl [Sinus Pe Decongestant]) 10 mg PO HS PRN PRN Reason: ALLERGIES Nystatin (Nystatin) 500,000 unit PO TID [facility] Last Admin: 04/21/19 06:59 Dose: 500,000 unit Sodium Chloride ([place] Nasal [place] -) 2 spray NS Q12H PRN PRN Reason: NASAL CONGESTION Tamsulosin HCl (Flomax -) 0.4 mg PO HS [facility] Last Admin: 04/20/19 22:04 Dose: 0.4 mg PHYSICAL EXAMINATION Vital Signs Period Temp Pulse Resp BP Sys/Peck Pulse Ox Last 24 Hr 97.9 F-99.6 F 56-99 14-20 125-178/71-108 96-100 GENERAL: Awake, alert, and fully oriented, in no acute distress. voice hoarseness/darkened tongue HEAD: Normal with no signs of trauma. EYES: Pupils equal, round and reactive to light, extraocular movements intact, sclera anicteric, conjunctiva clear. No lid lag. EARS, NOSE, THROAT: Ears normal, nares patent, oropharynx clear without exudates. Moist mucous membranes. NECK: Normal range of motion, supple without lymphadenopathy, JVD, or masses. LUNGS: Breath sounds equal, clear to auscultation bilaterally. diminished at the bases HEART: Regular rate and rhythm ABDOMEN: Soft, nontender, not distended, normoactive bowel sounds, no guarding, no rebound, no masses. No hepatomegaly or splenomegaly. MUSCULOSKELETAL: No CVA tenderness. UPPER EXTREMITIES: No peripheral edema. LOWER EXTREMITIES: No peripheral edema. NEUROLOGICAL: Normal speech. Normal gait. PSYCHIATRIC: Cooperative. Good eye contact. Appropriate mood and affect. SKIN: Warm, dry, normal turgor, no rashes or lesions noted, normal capillary refill. CBCD WBC 5.2 K/mm3 (4.0-10.0) 04/20/19 07:25 RBC 4.24 M/mm3 (4.00-5.60) 04/20/19 07:25 Hgb 12.9 GM/dL (11.7-16.9) 04/20/19 07:25 Hct 37.3 % (35.4-49) 04/20/19 07:25 MCV 88.0 fl (80-96) 04/20/19 07:25 MCHC 34.6 g/dl (32.0-35.9) 04/20/19 07:25 RDW 14.8 % (11.9-15.9) 04/20/19 07:25 Plt Count 344 K/MM3 (134-434) 04/20/19 07:25 MPV 7.5 fl (7.5-11.1) 04/20/19 07:25 CMP Sodium 139 mmol/L (136-145) 04/20/19 07:25 Potassium 4.2 mmol/L (3.5-5.1) 04/20/19 07:25 Chloride 106 mmol/L (98-107) 04/20/19 07:25 Carbon Dioxide 28 mmol/L (21-32) 04/20/19 07:25 Anion Gap 5 MMOL/L (8-16) L 04/20/19 07:25 BUN 11.8 mg/dL (7-18) 04/20/19 07:25 Creatinine 0.7 mg/dL (0.55-1.3) 04/20/19 07:25 Random Glucose 83 mg/dL (74-106) 04/20/19 07:25 Calcium 9.3 mg/dL (8.5-10.1) 04/20/19 07:25 Total Bilirubin 0.6 mg/dL (0.2-1) 04/19/19 12:14 AST 20 U/L (15-37) 04/19/19 12:14 ALT 46 U/L (13-61) 04/19/19 12:14 Alkaline Phosphatase 121 U/L (45-117) H 04/19/19 12:14 Total Protein 7.5 g/dl (6.4-8.2) 04/19/19 12:14 Albumin 4.4 g/dl (3.4-5.0) 04/19/19 12:14 CARDIAC ENZYMES Troponin I < 0.02 ng/ml (0.00-0.05) 04/20/19 07:25 ASSESSMENT/PLAN: Patient is a 59 year old male with a significant past medical history of Non- Hodgkin lymphoma in 1986 in remission s/p chemotherapy, BPH and hypertension. He reports that he has been having 3 weeks of diffuse head and neck pain and difficulty laying flat and feels as though he cannot get enough air when laying flat. Denies chest pain, but shortness of breath has progressively worsened and now sleeps sitting up most of the time. He also states that he has been having headaches, unintentional weight loss, generalized malaise, hoarseness of his voice. Consulted regarding headaches and patient reports they've been occuring for years. SLightly tangential in his description but mostly frontal with associated neck pain. Head CT complete, no acute pathology. Chest CT indicates moderate left-sided pleural effusion with left-sided lung masses noted, the pleural fluid does track into the fissure. Patient had thoracentisis for removal of fluid and biopsy, 420cc of fluid removed. Pt had cervical spine CT, correlation of moderate left pleural effusion and left apical nodular opacity with microcalcifications, chronic degenerative changes, no fracture noted. Discussed this with him and provided reassurance that no significant abnormalities on CT head and C spine. Fioricet prescribed and can be taken as needed. Will add topamax 25mg bid as well. Continue optimization of pleural effusion, and medical management ongoing. Follow up pulmonary recomendation. Headaches likely induced by underlying medical isuues and stress related. Cognitive rest recommended. Headache triggers and prevention discussed.
--- NOTE | 2019-04-21 11:02 | PN ---
Progress Note (short form) - Note Progress Note: s: no cp sob palps dizzy Current Medications Generic Name Dose Route Start Last Admin Trade Name Freq PRN Reason Stop Dose Admin Acetaminophen/Butalbital/Caffeine 1 tablet 04/20/19 11:41 Fioricet - PO Q6H PRN HEADACHE Docusate Sodium 200 mg 04/21/19 10:00 04/21/19 09:26 Colace - PO Not Given DAILY [facility] Losartan Potassium 50 mg 04/20/19 10:00 04/21/19 09:26 Cozaar - PO 50 mg DAILY [facility] Administration Melatonin 1 mg 04/19/19 18:39 04/20/19 22:05 Melatonin PO 1 mg HS [facility] Administration Metoprolol Succinate 25 mg 04/20/19 12:30 04/21/19 09:26 Toprol Xl - PO 25 mg DAILY [facility] Administration Montelukast Sodium 10 mg 04/19/19 22:00 04/20/19 22:04 Singulair - PO 10 mg HS [facility] Administration Non-Formulary Medication 50 mcg 04/20/19 20:06 Fluticasone Propionate [Flovent Diskus] IH BID PRN ALLERGIES Non-Formulary Medication 10 mg 04/20/19 20:09 Phenylephrine Hcl [Sinus Pe Decongestant] PO HS PRN ALLERGIES Nystatin 500,000 unit 04/20/19 15:30 04/21/19 06:59 Nystatin PO 500,000 unit TID [facility] Administration Sodium Chloride 2 spray 04/19/19 18:34 [place] Nasal [place] - NS Q12H PRN NASAL CONGESTION Tamsulosin HCl 0.4 mg 04/20/19 22:00 04/20/19 22:04 Flomax - PO 0.4 mg HS [facility] Administration Vital Signs Period Temp Pulse Resp BP Sys/Peck Pulse Ox Last 24 Hr 97.5 F-99.6 F 56-99 14-20 125-178/71-108 96-100 Constitutional: Yes: No Distress Respiratory: Yes: CTA Bilaterally Gastrointestinal: Yes: Soft Cardiovascular: Yes: Regular Rate and Rhythm JVD: No Carotid Bruit: No Heart Sounds: Yes: S1, S2 Peripheral Pulses WNL: Yes Neurological: Yes: Alert CBC, BMP 04/20/19 07:25 04/20/19 07:25 nsr , lbbb Imaging - Results Cat Scan: Report Reviewed EKG: Image Reviewed Assessment/Plan IMP: History NHL now with lef pleural effusion and lung masses Headaches LBBB (chronic as per patient) HTN chronic syst chf REC: 1. Work up of lung findings as per PMD, Onc and Pulm. s/p thoracentesis, results pending 2. Echo 04/2019 in office shows EF 30-35%, nl RV, normal valves. Vol stable here. 3. Cont ARB, bb for chf regimen. 4. Will consider and plan ischemic evaluation, likely with pharm MPI, depending on further work up of pleural effusion and lung masses.
[2019-04-21] MEDS ORDERED: POLYETHYLENE GLYCOL 3350 119 GM BTL PO ONE (11:53)
[2019-04-21] MEDS ORDERED: GLYCERIN 1 RECTAL SUPPOSITORY, ADULT RC ONE (11:53)
--- NOTE | 2019-04-21 13:01 | PN ---
Progress Note, Physician History of Present Illness: PULMONARY ALERT,,STILL C/O HEADACHE AND NECK PAIN. -SOB - Current Medication List Current Medications: Active Medications Acetaminophen/Butalbital/Caffeine (Fioricet -) 1 tablet PO Q6H PRN PRN Reason: HEADACHE Docusate Sodium (Colace -) 200 mg PO DAILY [facility] Last Admin: 04/21/19 09:26 Dose: Not Given Losartan Potassium (Cozaar -) 50 mg PO DAILY [facility] Last Admin: 04/21/19 09:26 Dose: 50 mg Melatonin (Melatonin) 1 mg PO HS [facility] Last Admin: 04/20/19 22:05 Dose: 1 mg Metoprolol Succinate (Toprol Xl -) 25 mg PO DAILY [facility] Last Admin: 04/21/19 09:26 Dose: 25 mg Montelukast Sodium (Singulair -) 10 mg PO HS [facility] Last Admin: 04/20/19 22:04 Dose: 10 mg Non-Formulary Medication (Fluticasone Propionate [Flovent Diskus]) 50 mcg IH BID PRN PRN Reason: ALLERGIES Nystatin (Nystatin) 500,000 unit PO TID [facility] Last Admin: 04/21/19 06:59 Dose: 500,000 unit Sodium Chloride ([place] Nasal [place] -) 2 spray NS Q12H PRN PRN Reason: NASAL CONGESTION Last Admin: 04/21/19 12:27 Dose: 2 spr Tamsulosin HCl (Flomax -) 0.[address] [facility] Last Admin: 04/20/19 22:04 Dose: 0.4 mg Topiramate (Topamax -) 25 mg PO BID [facility] - Objective Vital Signs: Vital Signs Temperature 97.5 F L 04/21/19 09:00 Pulse Rate 69 04/21/19 09:00 Respiratory Rate 20 04/21/19 09:00 Blood Pressure 126/73 04/21/19 09:00 O2 Sat by Pulse Oximetry (%) 96 04/20/19 21:00 Constitutional: Yes: Well Nourished, Calm Eyes: Yes: WNL HENT: Yes: WNL Neck: Yes: WNL Cardiovascular: Yes: Regular Rate and Rhythm, S1 Respiratory: Yes: Diminished (BECREASED BS LEFT BASE) Gastrointestinal: Yes: Normal Bowel Sounds, Soft Extremities: Yes: WNL Edema: No Labs: Problem List - Problems (1) Headache Code(s): R51 - HEADACHE (2) Hypertension Code(s): I10 - ESSENTIAL (PRIMARY) HYPERTENSION (3) Lesion of lung Code(s): R91.1 - SOLITARY PULMONARY NODULE (4) Pleural effusion, left Code(s): J90 - PLEURAL EFFUSION, NOT ELSEWHERE CLASSIFIED (5) Voice hoarseness Code(s): R49.0 - DYSPHONIA (6) Weight decrease Code(s): R63.4 - ABNORMAL WEIGHT LOSS (7) H/O non-Hodgkin's lymphoma Code(s): Z85.72 - PERSONAL HISTORY OF NON-HODGKIN LYMPHOMAS Assessment/Plan IMP LEFT PLEURAL EFFUSION ?MALIGNANT PULMONARY NODULES HEADACHES H/O NON-HODGKINS LYMPHOMA HTN LBBB HOARSENESS PLAN PLEURAL FLUID CHEMISTRIES,CYTOLOGY PENDING ECHO MONITOR LYTES CONSIDER ENT EVALUATION DR BALDWIN Problem List - Problems (1) Headache Code(s): R51 - HEADACHE (2) Hypertension Code(s): I10 - ESSENTIAL (PRIMARY) HYPERTENSION (3) Lesion of lung Code(s): R91.1 - SOLITARY PULMONARY NODULE (4) Pleural effusion, left Code(s): J90 - PLEURAL EFFUSION, NOT ELSEWHERE CLASSIFIED (5) Voice hoarseness Code(s): R49.0 - DYSPHONIA (6) Weight decrease Code(s): R63.4 - ABNORMAL WEIGHT LOSS (7) H/O non-Hodgkin's lymphoma Code(s): Z85.72 - PERSONAL HISTORY OF NON-HODGKIN LYMPHOMAS
[2019-04-21] MEDS: TOPIRAMATE 25 MG TABLET (FP) PO SCH ×2 (13:27→21:24)
--- NOTE | 2019-04-21 14:51 | PN ---
Physical Exam: SUBJECTIVE: Patient seen and examined, reports constipation. OBJECTIVE: Patient w/o PCP. Made an appointment for him to be seen as follows New PCP: Dr. Ordaz @ [address] [place] [address] Date: April 24 Time: 1:00pm Patient is a 59 year old male with a significant past medical history of Non- Hodgkin lymphoma in 1986 in remission s/p chemotherapy, BPH and hypertension. He reports that he has been having 3 weeks of diffuse head and neck pain and difficulty laying flat and feels as though he cannot get enough air when laying flat. Denies chest pain, but shortness of breath has progressively worsened and now sleeps sitting up most of the time. He also states that he has been having headaches, unintentional weight loss, generalized malaise, hoarseness of his voice. He reports that he does not have a PCP currently and was assigned one who he has not yet seen. 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 Patient reports non compliance with his BP medications at home, however admits to taking Tylenol almost daily for his chronic headaches. He reports that he takes benadryl every night for insomnia as well as oxymetazoline every night for sinus congestions as well as phenylephrine. he is s/p thoracentesis 04/20/2019 with 420cc/removal of turbid fluid. Vital Signs Period Temp Pulse Resp BP Sys/Peck Pulse Ox Last 24 Hr 97.5 F-98.5 F 65-95 18-20 125-146/71-87 96-98 GENERAL: Awake, alert, and fully oriented, in no acute distress. voice hoarseness/darkened tongue HEAD: Normal with no signs of trauma. EYES: Pupils equal, round and reactive to light, extraocular movements intact, sclera anicteric, conjunctiva clear. No lid lag. EARS, NOSE, THROAT: Ears normal, nares patent, oropharynx clear without exudates. Moist mucous membranes. NECK: Normal range of motion, supple without lymphadenopathy, JVD, or masses. LUNGS: Breath sounds equal, clear to auscultation bilaterally. diminished at the bases HEART: Regular rate and rhythm ABDOMEN: Soft, nontender, not distended, normoactive bowel sounds, no guarding, no rebound, no masses. No hepatomegaly or splenomegaly. MUSCULOSKELETAL: No CVA tenderness. UPPER EXTREMITIES: No peripheral edema. LOWER EXTREMITIES: No peripheral edema. NEUROLOGICAL: Normal speech. Normal gait. PSYCHIATRIC: Cooperative. Good eye contact. Appropriate mood and affect. SKIN: Warm, dry, normal turgor, no rashes or lesions noted, normal capillary refill. Laboratory Results - last 24 hr 04/20/19 12:20 Fluid Source Pleural Fluid WBC 1039 Fluid RBC 1720 Fluid Neutrophils 61 Pleural Macrophages 30 Pleural Mesothelial 9 Active Medications Generic Name Dose Route Start Last Admin Trade Name Freq PRN Reason Stop Dose Admin Acetaminophen/Butalbital/Caffeine 1 tablet 04/20/19 11:41 Fioricet - PO Q6H PRN HEADACHE Docusate Sodium 200 mg 04/21/19 10:00 04/21/19 09:26 Colace - PO Not Given DAILY [facility] Losartan Potassium 50 mg 04/20/19 10:00 04/21/19 09:26 Cozaar - PO 50 mg DAILY [facility] Administration Melatonin 1 mg 04/19/19 18:39 04/20/19 22:05 Melatonin PO 1 mg HS [facility] Administration Metoprolol Succinate 25 mg 04/20/19 12:30 04/21/19 09:26 Toprol Xl - PO 25 mg DAILY [facility] Administration Montelukast Sodium 10 mg 04/19/19 22:00 04/20/19 22:04 Singulair - PO 10 mg HS [facility] Administration Nystatin 500,000 unit 04/20/19 15:30 04/21/19 13:32 Nystatin PO 500,000 unit TID [facility] Administration Sodium Chloride 2 spray 04/19/19 18:34 04/21/19 12:27 [place] Nasal [place] - NS 2 spr Q12H PRN Administration NASAL CONGESTION Tamsulosin HCl 0.4 mg 04/20/19 22:00 04/20/19 22:04 Flomax - PO 0.4 mg HS [facility] Administration Topiramate 25 mg 04/21/19 12:15 04/21/19 13:27 Topamax - PO 25 mg BID [facility] Administration ASSESSMENT/PLAN: Problem List - Problems (1) Pleural effusion, left Assessment/Plan: Chest ct 04/19/19: moderate left-sided pleural effusion, left-sided lung masses noted. s/p thoracentesis 04/20/2019 with 450cc/turbid fluid removed/analysis pending. pre and post prior to discharge will need outpatient follow up (no pcp - new one assigned for next week tuesday) Will need PET scan as an outpatient Code(s): J90 - PLEURAL EFFUSION, NOT ELSEWHERE CLASSIFIED (2) Lesion of lung Assessment/Plan: Per chest CT, left sided lung mass noted with moderate left sided pleural effusion and lung lesions no airway compromise monitor vitals pre and post prior to discharge pulmonary consulted Code(s): R91.1 - SOLITARY PULMONARY NODULE (3) Chronic systolic (congestive) heart failure Assessment/Plan: Cont ARB, beta blockers. possible stress test while in patient Code(s): I50.22 - CHRONIC SYSTOLIC (CONGESTIVE) HEART FAILURE (4) Hypertension Assessment/Plan: patient non compliant with home medications. also reports he has not seen a PCP in some time. He is a poor follow up. Re-start home medications and made an appointment for PCP follow up Code(s): I10 - ESSENTIAL (PRIMARY) HYPERTENSION (5) Weight decrease Assessment/Plan: 10 lbs loss in 1 year per patient started on supplements, dietary consult Code(s): R63.4 - ABNORMAL WEIGHT LOSS (6) Voice hoarseness Assessment/Plan: etiology of voice hoarseness unclear no airway compromise speech and swallow eval ordered also has darkened tongue that appears to be fungal will order nystatin ENT as an outpatient Code(s): R49.0 - DYSPHONIA Visit type - Emergency Visit Emergency Visit: Yes ED Registration Date: 04/19/19 Care time: The patient presented to the Emergency Department on the above date and was hospitalized for further evaluation of their emergent condition. - New Patient This patient is new to me today: No - Critical Care Critical Care patient: No - Discharge Referral Referred to [facility] Med P.C.: No
[2019-04-21] MEDS ORDERED: PT OWN MED DRAWER 7, Y5N ONE (20:55)
[2019-04-21] MEDS: MELATONIN 1 MG TABLET PO SCH (21:25)
[2019-04-21] MEDS: MONTELUKAST NA 10 MG TABLET PO SCH (21:25)
[2019-04-21] MEDS: TAMSULOSIN HCL 0.4 MG CAP PO SCH (21:26)
[2019-04-22] MEDS: ACETAMINOPHEN/CAFFEINE/BUTALBITAL 1 TAB PO PRN ×2 (06:24→13:21)
[2019-04-22] MEDS: NYSTATIN 500,000 UNITS TABLET PO SCH ×3 (06:25→21:18)
[2019-04-22 08:35] LABS: BASO % 0.7 % (0-2.0); EOS % 1.3 % (0-4.5); HEMATOCRIT 40.2 % (35.4-49); HEMOGLOBIN 13.5 GM/dL (11.7-16.9); LYMPH % 17.4 % (8-40); MCH 30.3 pg (25.7-33.7); MCHC 33.6 g/dl (32.0-35.9); MEAN CELL VOLUME 90.1 fl (80-96); MEAN PLT VOLUME 7.9 fl (7.5-11.1); MONO % 11.2 % (3.8-10.2); NEUT % 69.4 % (42.8-82.8); PLATELET COUNT 330 K/MM3 (134-434); RBC 4.46 M/mm3 (4.00-5.60); RDW 14.7 % (11.9-15.9); WHITE BLOOD COUNT 8.9 K/mm3 (4.0-10.0)
[2019-04-22 09:06] LABS: ALBUMIN 3.6 g/dl (3.4-5.0); BILIRUBIN,TOTAL 0.9 mg/dL (0.2-1); BLOOD UREA NITROGEN 12.9 mg/dL (7-18); CALCIUM 9.2 mg/dL (8.5-10.1); CREATININE 0.8 mg/dL (0.55-1.3); MAGNESIUM 2.3 mg/dL (1.8-2.4); TOT PROT 6.6 g/dl (6.4-8.2)
[2019-04-22] MEDS: metoPROLOL SUCCINATE 25 MG TAB.SR.24H (FP) PO SCH (10:01)
[2019-04-22] MEDS: DOCUSATE SODIUM 100 MG CAPSULE (FP) PO SCH (10:16)
[2019-04-22] MEDS: TOPIRAMATE 25 MG TABLET (FP) PO SCH ×2 (10:16→21:10)
[2019-04-22] MEDS: LOSARTAN POTASSIUM 50 MG TABLET (FP) PO SCH (10:16)
--- NOTE | 2019-04-22 10:17 | PN ---
Progress Note (short form) - Note Progress Note: Neurology CHIEF COMPLAINT: shortness of breath, weakness, headaches, neck pain PCP: Dr. Mcnamara HISTORY OF PRESENT ILLNESS: Patient is a 59 year old male with a significant past medical history of Non- Hodgkin lymphoma in 1986 in remission s/p chemotherapy, BPH and hypertension. He reports that he has been having 3 weeks of diffuse head and neck pain and difficulty laying flat and feels as though he cannot get enough air when laying flat. Denies chest pain, but shortness of breath has progressively worsened and now sleeps sitting up most of the time. He also states that he has been having headaches, unintentional weight loss, generalized malaise, hoarseness of his voice. He reports that he does not have a PCP currently and was assigned one who he has not yet seen. He went to seen his finger lift operator on day of admission prior to coming to the ER, for an echocardiogram but does not have a primary care doctor. Patient reports non compliance with his BP medications at home, however admits to taking Tylenol almost daily for his chronic headaches. He reports that he takes benadryl every night for insomnia as well as oxymetazoline every night for sinus congestions as well as phenylephrine. He denies any chest pain, denies dizziness. Pt has elevated BNP 1267. Consulted regarding headaches and patient reports they've been occuring for years. SLightly tangential in his description but mostly frontal with associated neck pain. Head CT complete, no acute pathology. Chest CT indicates moderate left-sided pleural effusion with left-sided lung masses noted, the pleural fluid does track into the fissure. Patient had thoracentisis for removal of fluid and biopsy, 420cc of fluid removed. Pt had cervical spine CT, correlation of moderate left pleural effusion and left apical nodular opacity with microcalcifications, chronic degenerative changes, no fracture noted. Discussed this with him and provided reassurance that no significant abnormalities on CT head and C spine. Fioricet prescribed and can be taken as needed. topamax added 25mg bid, per nurse patient refused and was concerned about toxins. In speaking with him, he reportsthe dose he took did not provide relief and I informed him that he can take several days foradequate response. He inquired about increasing the dose which I would did not increase or at least a week. Informed him that in order for him to see a adequate response he would need to take the medication. Active Medications Acetaminophen/Butalbital/Caffeine (Fioricet -) 1 tablet PO Q6H PRN PRN Reason: HEADACHE Last Admin: 04/22/19 06:24 Dose: 1 tablet Docusate Sodium (Colace -) 200 mg PO DAILY [facility] Last Admin: 04/22/19 10:16 Dose: 200 mg Losartan Potassium (Cozaar -) 50 mg PO DAILY [facility] Last Admin: 04/22/19 10:16 Dose: 50 mg Melatonin (Melatonin) 1 mg PO HS [facility] Last Admin: 04/21/19 21:25 Dose: 1 mg Metoprolol Succinate (Toprol Xl -) 25 mg PO DAILY [facility] Last Admin: 04/22/19 10:01 Dose: Not Given Montelukast Sodium (Singulair -) 10 mg PO HS [facility] Last Admin: 04/21/19 21:25 Dose: 10 mg Nystatin (Nystatin) 500,000 unit PO TID [facility] Last Admin: 04/22/19 06:25 Dose: Not Given Sodium Chloride ([place] Nasal [place] -) 2 spray NS Q12H PRN PRN Reason: NASAL CONGESTION Last Admin: 04/21/19 12:27 Dose: 2 spr Tamsulosin HCl (Flomax -) 0.4 mg PO HS [facility] Last Admin: 04/21/19 21:26 Dose: 0.4 mg Topiramate (Topamax -) 25 mg PO BID [facility] Last Admin: 04/22/19 10:16 Dose: 25 mg PHYSICAL EXAMINATION Vital Signs Period Temp Pulse Resp BP Sys/Peck Pulse Ox Last 24 Hr 97.5 F-98.7 F 79-95 17-20 96-147/43-91 98 GENERAL: Awake, alert, and fully oriented, in no acute distress. voice hoarseness/darkened tongue HEAD: Normal with no signs of trauma. EYES: Pupils equal, round and reactive to light, extraocular movements intact, sclera anicteric, conjunctiva clear. No lid lag. EARS, NOSE, THROAT: Ears normal, nares patent, oropharynx clear without exudates. Moist mucous membranes. NECK: Normal range of motion, supple without lymphadenopathy, JVD, or masses. LUNGS: Breath sounds equal, clear to auscultation bilaterally. diminished at the bases HEART: Regular rate and rhythm ABDOMEN: Soft, nontender, not distended, normoactive bowel sounds, no guarding, no rebound, no masses. No hepatomegaly or splenomegaly. MUSCULOSKELETAL: No CVA tenderness. UPPER EXTREMITIES: No peripheral edema. LOWER EXTREMITIES: No peripheral edema. NEUROLOGICAL: Normal speech. Normal gait. PSYCHIATRIC: Cooperative. Good eye contact. Appropriate mood and affect. SKIN: Warm, dry, normal turgor, no rashes or lesions noted, normal capillary refill. CBCD WBC 8.9 K/mm3 (4.0-10.0) 04/22/19 07:33 RBC 4.46 M/mm3 (4.00-5.60) 04/22/19 07:33 Hgb 13.5 GM/dL (11.7-16.9) 04/22/19 07:33 Hct 40.2 % (35.4-49) 04/22/19 07:33 MCV 90.1 fl (80-96) 04/22/19 07:33 MCHC 33.6 g/dl (32.0-35.9) 04/22/19 07:33 RDW 14.7 % (11.9-15.9) 04/22/19 07:33 Plt Count 330 K/MM3 (134-434) 04/22/19 07:33 MPV 7.9 fl (7.5-11.1) 04/22/19 07:33 CMP Sodium 137 mmol/L (136-145) 04/22/19 07:33 Potassium 4.0 mmol/L (3.5-5.1) 04/22/19 07:33 Chloride 102 mmol/L (98-107) 04/22/19 07:33 Carbon Dioxide 25 mmol/L (21-32) 04/22/19 07:33 Anion Gap 9 MMOL/L (8-16) 04/22/19 07:33 BUN 12.9 mg/dL (7-18) 04/22/19 07:33 Creatinine 0.8 mg/dL (0.55-1.3) 04/22/19 07:33 Random Glucose 87 mg/dL (74-106) 04/22/19 07:33 Calcium 9.2 mg/dL (8.5-10.1) 04/22/19 07:33 Total Bilirubin 0.9 mg/dL (0.2-1) 04/22/19 07:33 AST 15 U/L (15-37) 04/22/19 07:33 ALT 30 U/L (13-61) 04/22/19 07:33 Alkaline Phosphatase 107 U/L (45-117) 04/22/19 07:33 Total Protein 6.6 g/dl (6.4-8.2) 04/22/19 07:33 Albumin 3.6 g/dl (3.4-5.0) 04/22/19 07:33 CARDIAC ENZYMES Troponin I < 0.02 ng/ml (0.00-0.05) 04/20/19 07:25 ASSESSMENT/PLAN: Patient is a 59 year old male with a significant past medical history of Non- Hodgkin lymphoma in 1986 in remission s/p chemotherapy, BPH and hypertension. He reports that he has been having 3 weeks of diffuse head and neck pain and difficulty laying flat and feels as though he cannot get enough air when laying flat. Denies chest pain, but shortness of breath has progressively worsened and now sleeps sitting up most of the time. He also states that he has been having headaches, unintentional weight loss, generalized malaise, hoarseness of his voice. Consulted regarding headaches and patient reports they've been occuring for years. SLightly tangential in his description but mostly frontal with associated neck pain. Head CT complete, no acute pathology. Chest CT indicates moderate left-sided pleural effusion with left-sided lung masses noted, the pleural fluid does track into the fissure. Patient had thoracentisis for removal of fluid and biopsy, 420cc of fluid removed. Pt had cervical spine CT, correlation of moderate left pleural effusion and left apical nodular opacity with microcalcifications, chronic degenerative changes, no fracture noted. Discussed this with him and provided reassurance that no significant abnormalities on CT head and C spine. Fioricet prescribed and can be taken as needed. topamax added 25mg bid. per nurse patient refused and was concerned about toxins. In speaking with him, he reportsthe dose he took did not provide relief and I informed him that he can take several days foradequate response. He inquired about increasing the dose which I would did not increase or at least a week. Informed him that in order for him to see a adequate response he would need to take the medication. Continue optimization of pleural effusion, and medical management ongoing. Follow up pulmonary recomendation. Headaches likely induced by underlying medical isuues and stress related. Cognitive rest recommended. Headache triggers and prevention discussed.
--- NOTE | 2019-04-22 10:42 | PN ---
Progress Note (short form) - Note Progress Note: s: no cp sob palps dizzy Current Medications Generic Name Dose Route Start Last Admin Trade Name Freq PRN Reason Stop Dose Admin Acetaminophen/Butalbital/Caffeine 1 tablet 04/20/19 11:41 04/22/19 06:24 Fioricet - PO 1 tablet Q6H PRN Administration HEADACHE Docusate Sodium 200 mg 04/21/19 10:00 04/22/19 10:16 Colace - PO 200 mg DAILY [facility] Administration Losartan Potassium 50 mg 04/20/19 10:00 04/22/19 10:16 Cozaar - PO 50 mg DAILY [facility] Administration Melatonin 1 mg 04/19/19 18:39 04/21/19 21:25 Melatonin PO 1 mg HS [facility] Administration Metoprolol Succinate 25 mg 04/20/19 12:30 04/22/19 10:01 Toprol Xl - PO Not Given DAILY [facility] Montelukast Sodium 10 mg 04/19/19 22:00 04/21/19 21:25 Singulair - PO 10 mg HS [facility] Administration Nystatin 500,000 unit 04/20/19 15:30 04/22/19 06:25 Nystatin PO Not Given TID [facility] Sodium Chloride 2 spray 04/19/19 18:34 04/21/19 12:27 [place] Nasal [place] - NS 2 spr Q12H PRN Administration NASAL CONGESTION Tamsulosin HCl 0.4 mg 04/20/19 22:00 04/21/19 21:26 Flomax - PO 0.4 mg HS [facility] Administration Topiramate 25 mg 04/21/19 12:15 04/22/19 10:16 Topamax - PO Not Given BID [facility] Vital Signs Period Temp Pulse Resp BP Sys/Peck Pulse Ox Last 24 Hr 97.5 F-98.7 F 79-95 17-20 96-147/43-91 98 Constitutional: Yes: No Distress Respiratory: Yes: CTA Bilaterally Gastrointestinal: Yes: Soft Cardiovascular: Yes: Regular Rate and Rhythm JVD: No Carotid Bruit: No Heart Sounds: Yes: S1, S2 Peripheral Pulses WNL: Yes Neurological: Yes: Alert CBC, BMP 04/22/19 07:33 04/22/19 07:33 nsr , lbbb Imaging - Results Cat Scan: Report Reviewed EKG: Image Reviewed Assessment/Plan IMP: History NHL now with lef pleural effusion and lung masses Headaches LBBB (chronic as per patient) HTN chronic syst chf REC: 1. Work up of lung findings as per PMD, Onc and Pulm. s/p thoracentesis, results pending 2. Echo 04/2019 in office shows EF 30-35%, nl RV, normal valves. Vol stable here. 3. Cont ARB, bb for chf regimen. 4. Will consider and plan ischemic evaluation, likely with pharm MPI, depending on further work up of pleural effusion and lung masses.
[2019-04-22] MEDS ORDERED: MELATONIN 1 MG TABLET PO SCH (14:27)
--- NOTE | 2019-04-22 14:27 | PN ---
Physical Exam: SUBJECTIVE: Patient seen and examined OBJECTIVE: Vital Signs Period Temp Pulse Resp BP Sys/Peck Pulse Ox Last 24 Hr 97.5 F-98.2 F 79-95 17-20 96-147/43-91 98 GENERAL: The patient is awake, alert, and fully oriented, in no acute distress. HEAD: Normal with no signs of trauma. EYES: PERRL, extraocular movements intact, sclera anicteric, conjunctiva clear. No ptosis. ENT: Ears normal, nares patent, oropharynx clear without exudates, moist mucous membranes. NECK: Trachea midline, full range of motion, supple. LUNGS: Breath sounds equal, clear to auscultation bilaterally, no wheezes, no crackles, no accessory muscle use. HEART: Regular rate and rhythm, S1, S2 without murmur, rub or gallop. ABDOMEN: Soft, nontender, nondistended, normoactive bowel sounds, no guarding, no rebound, no hepatosplenomegaly, no masses. EXTREMITIES: 2+ pulses, warm, well-perfused, no edema. NEUROLOGICAL: Cranial nerves II through XII grossly intact. Normal speech, gait not observed. PSYCH: Normal mood, normal affect. SKIN: Warm, dry, normal turgor, no rashes or lesions noted Laboratory Results - last 24 hr 04/22/19 04/22/19 07:33 07:33 WBC 8.9 RBC 4.46 Hgb 13.5 Hct 40.2 MCV 90.1 MCH 30.3 MCHC 33.6 RDW 14.7 Plt Count 330 MPV 7.9 Absolute Neuts (auto) 6.2 Neutrophils % 69.4 Lymphocytes % 17.4 Monocytes % 11.2 H Eosinophils % 1.3 D Basophils % 0.7 Nucleated RBC % 0 Sodium 137 Potassium 4.0 Chloride 102 Carbon Dioxide 25 Anion Gap 9 BUN 12.9 Creatinine 0.8 Est GFR (CKD-EPI)AfAm 112.53 Est GFR (CKD-EPI)NonAf 97.10 Random Glucose 87 Calcium 9.2 Magnesium 2.3 Total Bilirubin 0.9 AST 15 ALT 30 Alkaline Phosphatase 107 Total Protein 6.6 Albumin 3.6 Active Medications Generic Name Dose Route Start Last Admin Trade Name Freq PRN Reason Stop Dose Admin Acetaminophen/Butalbital/Caffeine 1 tablet 04/20/19 11:41 04/22/19 13:21 Fioricet - PO 1 tablet Q6H PRN Administration HEADACHE Docusate Sodium 200 mg 04/21/19 10:00 04/22/19 10:16 Colace - PO 200 mg DAILY [facility] Administration Losartan Potassium 50 mg 04/20/19 10:00 04/22/19 10:16 Cozaar - PO 50 mg DAILY [facility] Administration Melatonin 1 mg 04/19/19 18:39 04/21/19 21:25 Melatonin PO 1 mg HS [facility] Administration Metoprolol Succinate 25 mg 04/20/19 12:30 04/22/19 10:01 Toprol Xl - PO Not Given DAILY [facility] Montelukast Sodium 10 mg 04/19/19 22:00 04/21/19 21:25 Singulair - PO 10 mg HS [facility] Administration Nystatin 500,000 unit 04/20/19 15:30 04/22/19 13:13 Nystatin PO Not Given TID [facility] Sodium Chloride 2 spray 04/19/19 18:34 04/21/19 12:27 [place] Nasal [place] - NS 2 spr Q12H PRN Administration NASAL CONGESTION Tamsulosin HCl 0.4 mg 04/20/19 22:00 04/21/19 21:26 Flomax - PO 0.4 mg HS [facility] Administration Topiramate 25 mg 04/21/19 12:15 04/22/19 10:16 Topamax - PO Not Given BID [facility] ASSESSMENT/PLAN: Problem List - Problems (1) Pleural effusion, left Code(s): J90 - PLEURAL EFFUSION, NOT ELSEWHERE CLASSIFIED (2) Lesion of lung Code(s): R91.1 - SOLITARY PULMONARY NODULE (3) Chronic systolic (congestive) heart failure Code(s): I50.22 - CHRONIC SYSTOLIC (CONGESTIVE) HEART FAILURE (4) Hypertension Code(s): I10 - ESSENTIAL (PRIMARY) HYPERTENSION (5) Weight decrease Code(s): R63.4 - ABNORMAL WEIGHT LOSS (6) Voice hoarseness Code(s): R49.0 - DYSPHONIA
--- NOTE | 2019-04-22 14:40 | PN ---
Progress Note, Physician History of Present Illness: PULMONARY ALERT,COMFORTABLE,-SOB,HEADACHE IMPROVING. PLEURAL FLUID CHEMISTRIES PENDING - Current Medication List Current Medications: Active Medications Acetaminophen/Butalbital/Caffeine (Fioricet -) 1 tablet PO Q6H PRN PRN Reason: HEADACHE Last Admin: 04/22/19 13:21 Dose: 1 tablet Docusate Sodium (Colace -) 200 mg PO DAILY [facility] Last Admin: 04/22/19 10:16 Dose: 200 mg Losartan Potassium (Cozaar -) 50 mg PO DAILY [facility] Last Admin: 04/22/19 10:16 Dose: 50 mg Melatonin (Melatonin) 3 mg PO HS [facility] Metoprolol Succinate (Toprol Xl -) 25 mg PO DAILY [facility] Last Admin: 04/22/19 10:01 Dose: Not Given Montelukast Sodium (Singulair -) 10 mg PO HS [facility] Last Admin: 04/21/19 21:25 Dose: 10 mg Nystatin (Nystatin) 500,000 unit PO TID [facility] Last Admin: 04/22/19 13:13 Dose: Not Given Sodium Chloride ([place] Nasal [place] -) 2 spray NS Q12H PRN PRN Reason: NASAL CONGESTION Last Admin: 04/21/19 12:27 Dose: 2 spr Tamsulosin HCl (Flomax -) 0.4 mg PO HS [facility] Last Admin: 04/21/19 21:26 Dose: 0.4 mg Topiramate (Topamax -) 25 mg PO BID [facility] Last Admin: 04/22/19 10:16 Dose: Not Given - Objective Vital Signs: Vital Signs Temperature 97.8 F 04/22/19 10:00 Pulse Rate 80 04/22/19 10:00 Respiratory Rate 18 04/22/19 10:00 Blood Pressure 96/43 L 04/22/19 10:00 O2 Sat by Pulse Oximetry (%) 98 04/22/19 09:00 Constitutional: Yes: Well Nourished, Calm Eyes: Yes: WNL HENT: Yes: WNL Neck: Yes: WNL Cardiovascular: Yes: Regular Rate and Rhythm, S1, S2 Respiratory: Yes: CTA Bilaterally Gastrointestinal: Yes: Normal Bowel Sounds, Soft Extremities: Yes: WNL Edema: No Labs: CBC, BMP 04/22/19 07:33 04/22/19 07:33 INR, PTT INR 1.06 (0.83-1.09) 04/20/19 07:25 Problem List - Problems (1) Headache Code(s): R51 - HEADACHE (2) Hypertension Code(s): I10 - ESSENTIAL (PRIMARY) HYPERTENSION (3) Lesion of lung Code(s): R91.1 - SOLITARY PULMONARY NODULE (4) Pleural effusion, left Code(s): J90 - PLEURAL EFFUSION, NOT ELSEWHERE CLASSIFIED (5) Voice hoarseness Code(s): R49.0 - DYSPHONIA (6) Weight decrease Code(s): R63.4 - ABNORMAL WEIGHT LOSS (7) H/O non-Hodgkin's lymphoma Code(s): Z85.72 - PERSONAL HISTORY OF NON-HODGKIN LYMPHOMAS Assessment/Plan IMP LEFT PLEURAL EFFUSION ?MALIGNANT PULMONARY NODULES HEADACHES H/O NON-HODGKINS LYMPHOMA HTN LBBB HOARSENESS PLAN PLEURAL FLUID CHEMISTRIES,CYTOLOGY PENDING ECHO MONITOR JEREMIE BALDWIN Problem List - Problems (1) Headache Code(s): R51 - HEADACHE (2) Hypertension Code(s): I10 - ESSENTIAL (PRIMARY) HYPERTENSION (3) Lesion of lung Code(s): R91.1 - SOLITARY PULMONARY NODULE (4) Pleural effusion, left Code(s): J90 - PLEURAL EFFUSION, NOT ELSEWHERE CLASSIFIED (5) Voice hoarseness Code(s): R49.0 - DYSPHONIA (6) Weight decrease Code(s): R63.4 - ABNORMAL WEIGHT LOSS (7) H/O non-Hodgkin's lymphoma Code(s): Z85.72 - PERSONAL HISTORY OF NON-HODGKIN LYMPHOMAS
--- NOTE | 2019-04-22 15:03 | PN ---
Physical Exam: SUBJECTIVE: Patient seen and examined at the bedside. reports not sleeping last night. denies any shortness of breath. OBJECTIVE: Patient is a 59 year old male with a significant past medical history of Non- Hodgkin lymphoma in 1986 in remission s/p chemotherapy, BPH and hypertension. He reports that he has been having 3 weeks of diffuse head and neck pain and difficulty laying flat and feels as though he cannot get enough air when laying flat. Denies chest pain, but shortness of breath has progressively worsened and now sleeps sitting up most of the time. Chest ct 04/19/19 shows moderate left-sided pleural effusion, left-sided lung masses noted. He is s/p thoracentesis 04/20/2019 with 450cc/turbid fluid removed/analysis pending. Vital Signs Period Temp Pulse Resp BP Sys/Peck Pulse Ox Last 24 Hr 97.5 F-98.2 F 79-95 17-20 96-147/43-91 98-98 GENERAL: Awake, alert, and fully oriented, in no acute distress. voice hoarseness/darkened tongue HEAD: Normal with no signs of trauma. EYES: Pupils equal, round and reactive to light, extraocular movements intact, sclera anicteric, conjunctiva clear. No lid lag. EARS, NOSE, THROAT: Ears normal, nares patent, oropharynx clear without exudates. Moist mucous membranes. NECK: Normal range of motion, supple without lymphadenopathy, JVD, or masses. LUNGS: Breath sounds equal, clear to auscultation bilaterally. diminished at the bases HEART: Regular rate and rhythm ABDOMEN: Soft, nontender, not distended, normoactive bowel sounds, no guarding, no rebound, no masses. No hepatomegaly or splenomegaly. MUSCULOSKELETAL: No CVA tenderness. UPPER EXTREMITIES: No peripheral edema. LOWER EXTREMITIES: No peripheral edema. NEUROLOGICAL: Normal speech. Normal gait. PSYCHIATRIC: Cooperative. Good eye contact. Appropriate mood and affect. SKIN: Warm, dry, normal turgor, no rashes or lesions noted, normal capillary refill. Laboratory Results - last 24 hr 04/22/19 04/22/19 07:33 07:33 WBC 8.9 RBC 4.46 Hgb 13.5 Hct 40.2 MCV 90.1 MCH 30.3 MCHC 33.6 RDW 14.7 Plt Count 330 MPV 7.9 Absolute Neuts (auto) 6.2 Neutrophils % 69.4 Lymphocytes % 17.4 Monocytes % 11.2 H Eosinophils % 1.3 D Basophils % 0.7 Nucleated RBC % 0 Sodium 137 Potassium 4.0 Chloride 102 Carbon Dioxide 25 Anion Gap 9 BUN 12.9 Creatinine 0.8 Est GFR (CKD-EPI)AfAm 112.53 Est GFR (CKD-EPI)NonAf 97.10 Random Glucose 87 Calcium 9.2 Magnesium 2.3 Total Bilirubin 0.9 AST 15 ALT 30 Alkaline Phosphatase 107 Total Protein 6.6 Albumin 3.6 Active Medications Generic Name Dose Route Start Last Admin Trade Name Freq PRN Reason Stop Dose Admin Acetaminophen/Butalbital/Caffeine 1 tablet 04/20/19 11:41 04/22/19 13:21 Fioricet - PO 1 tablet Q6H PRN Administration HEADACHE Docusate Sodium 200 mg 04/21/19 10:00 04/22/19 10:16 Colace - PO 200 mg DAILY K[facility]ALL Administration Losartan Potassium 50 mg 04/20/19 10:00 04/22/19 10:16 Cozaar - PO 50 mg DAILY K[facility] Administration Melatonin 3 mg 04/22/19 14:27 Melatonin PO HS K[facility]ALL Metoprolol Succinate 25 mg 04/20/19 12:30 04/22/19 10:01 Toprol Xl - PO Not Given DAILY K[facility]ALL Montelukast Sodium 10 mg 04/19/19 22:00 04/21/19 21:25 Singulair - PO 10 mg HS K[facility]ALL Administration Nystatin 500,000 unit 04/20/19 15:30 04/22/19 13:13 Nystatin PO Not Given TID KENDALL Sodium Chloride 2 spray 04/19/19 18:34 04/21/19 12:27 [place] Nasal [place] - NS 2 spr Q12H PRN Administration NASAL CONGESTION Tamsulosin HCl 0.4 mg 04/20/19 22:00 04/21/19 21:26 Flomax - PO 0.4 mg HS K[facility] Administration Topiramate 25 mg 04/21/19 12:15 04/22/19 10:16 Topamax - PO Not Given BID K[facility]ALL ASSESSMENT/PLAN: Problem List - Problems (1) Pleural effusion, left Assessment/Plan: Chest ct 04/19/19: moderate left-sided pleural effusion, left-sided lung masses noted. s/p thoracentesis 04/20/2019 with 450cc/turbid fluid removed/analysis pending. pre and post prior to discharge will need outpatient follow up (no pcp - new one assigned for next week tuesday) Will need PET scan as an outpatient Code(s): J90 - PLEURAL EFFUSION, NOT ELSEWHERE CLASSIFIED (2) Lesion of lung Assessment/Plan: Per chest CT, left sided lung mass noted with moderate left sided pleural effusion and lung lesions no airway compromise monitor vitals pre and post prior to discharge pulmonary consulted Code(s): R91.1 - SOLITARY PULMONARY NODULE (3) Chronic systolic (congestive) heart failure Assessment/Plan: Cont ARB, beta blockers. possible stress test while in patient Code(s): I50.22 - CHRONIC SYSTOLIC (CONGESTIVE) HEART FAILURE (4) Hypertension Assessment/Plan: patient non compliant with home medications. also reports he has not seen a PCP in some time. He is a poor follow up. Re-start home medications and made an appointment for PCP follow up Code(s): I10 - ESSENTIAL (PRIMARY) HYPERTENSION (5) Weight decrease Assessment/Plan: 10 lbs loss in 1 year per patient started on supplements, dietary consult Code(s): R63.4 - ABNORMAL WEIGHT LOSS (6) Voice hoarseness Assessment/Plan: etiology of voice hoarseness unclear no airway compromise speech and swallow eval ordered also has darkened tongue that appears to be fungal ent evaluation on nystatin Code(s): R49.0 - DYSPHONIA (7) Persistent headaches Assessment/Plan: on florcet and topamax Code(s): R51 - HEADACHE Visit type - Emergency Visit Emergency Visit: Yes ED Registration Date: 04/19/19 Care time: The patient presented to the Emergency Department on the above date and was hospitalized for further evaluation of their emergent condition. - New Patient This patient is new to me today: No - Critical Care Critical Care patient: No - Discharge Referral Referred to [facility] Med P.C.: No
[2019-04-22] MEDS ORDERED: PT OWN MED DRAWER 7, Y5N ONE (21:05)
[2019-04-22] MEDS: TAMSULOSIN HCL 0.4 MG CAP PO SCH (21:09)
[2019-04-22] MEDS: MONTELUKAST NA 10 MG TABLET PO SCH (21:10)
[2019-04-23] MEDS ORDERED: diphenhydrAMINE HCL 25 MG CAPSULE (FP) PO ONE (01:44)
[2019-04-23] MEDS: NYSTATIN 500,000 UNITS TABLET PO SCH (06:30)
[2019-04-23 08:08] LABS: ALBUMIN 3.7 g/dl (3.4-5.0); BILIRUBIN,TOTAL 0.8 mg/dL (0.2-1); BLOOD UREA NITROGEN 16.7 mg/dL (7-18); CALCIUM 9.2 mg/dL (8.5-10.1); CREATININE 0.8 mg/dL (0.55-1.3); MAGNESIUM 2.3 mg/dL (1.8-2.4); POTASSIUM 4.2 mmol/L (3.5-5.1); TOT PROT 6.6 g/dl (6.4-8.2)
[2019-04-23 08:14] LABS: BASO % 0.5 % (0-2.0); EOS % 1.4 % (0-4.5); HEMATOCRIT 40.4 % (35.4-49); HEMOGLOBIN 13.6 GM/dL (11.7-16.9); LYMPH % 17.1 % (8-40); MCH 30.2 pg (25.7-33.7); MCHC 33.6 g/dl (32.0-35.9); MEAN CELL VOLUME 89.8 fl (80-96); MEAN PLT VOLUME 7.9 fl (7.5-11.1); MONO % 10.4 % (3.8-10.2); NEUT % 70.6 % (42.8-82.8); PLATELET COUNT 351 K/MM3 (134-434); RBC 4.49 M/mm3 (4.00-5.60); RDW 15.1 % (11.9-15.9); WHITE BLOOD COUNT 8.1 K/mm3 (4.0-10.0)
[2019-04-23] MEDS: DOCUSATE SODIUM 100 MG CAPSULE (FP) PO SCH (11:04)
[2019-04-23] MEDS: metoPROLOL SUCCINATE 25 MG TAB.SR.24H (FP) PO SCH (11:05)
[2019-04-23] MEDS: LOSARTAN POTASSIUM 50 MG TABLET (FP) PO SCH (11:05)
[2019-04-23] MEDS: TOPIRAMATE 25 MG TABLET (FP) PO SCH (11:05)
[2019-04-23] MEDS: ACETAMINOPHEN/CAFFEINE/BUTALBITAL 1 TAB PO PRN (11:32)
[2019-04-23] MEDS ORDERED: SODIUM CHLORIDE NASAL SPRAY 44 ML BOTTLE NS PRN (12:43)
--- NOTE | 2019-04-23 12:45 | PN ---
Progress Note (short form) - Note Progress Note: PULMONARY Denies shortness of breath. c/o nasal congestion especially at night. Vital Signs Period Temp Pulse Resp BP Sys/Peck Pulse Ox Last 24 Hr 97.0 F-98.5 F 77-82 18-18 108-126/62-69 98 Gen: NAD at rest Heart: RRR Lung: decreased breath sounds at the bases Abd: soft, nontender Ext: no edema CBC, BMP 04/23/19 06:55 04/23/19 06:55 Active Medications Acetaminophen/Butalbital/Caffeine (Fioricet -) 1 tablet PO Q6H PRN PRN Reason: HEADACHE Last Admin: 04/23/19 11:32 Dose: 1 tablet Docusate Sodium (Colace -) 200 mg PO DAILY [facility] Last Admin: 04/23/19 11:04 Dose: 200 mg Losartan Potassium (Cozaar -) 50 mg PO DAILY [facility] Last Admin: 04/23/19 11:05 Dose: 50 mg Melatonin (Melatonin) 3 mg PO HS [facility] Last Admin: 04/22/19 23:07 Dose: 3 mg Metoprolol Succinate (Toprol Xl -) 25 mg PO DAILY [facility] Last Admin: 04/23/19 11:05 Dose: 25 mg Montelukast Sodium (Singulair -) 10 mg PO HS [facility] Last Admin: 04/22/19 21:10 Dose: 10 mg Nystatin (Nystatin) 500,000 unit PO TID [facility] Last Admin: 04/23/19 06:30 Dose: Not Given Sodium Chloride ([place] Nasal [place] -) 2 spray NS Q4H PRN PRN Reason: NASAL CONGESTION Tamsulosin HCl (Flomax -) 0.4 mg PO HS [facility] Last Admin: 04/22/19 21:09 Dose: 0.4 mg Topiramate (Topamax -) 25 mg PO BID [facility] Last Admin: 04/23/19 11:05 Dose: 25 mg A/P Left Pleural Effusion s/p thoracentesis Lung Nodules h/o Non-Hodgkins Lymphoma HTN - f/u pleural fluid chemistries, cytology - echocardiogram - nasal sprays - DVT prophylaxis
--- NOTE | 2019-04-23 13:02 | PN ---
Physical Exam: SUBJECTIVE: Patient seen and examined OBJECTIVE: Vital Signs Period Temp Pulse Resp BP Sys/Peck Pulse Ox Last 24 Hr 97.0 F-98.5 F 77-82 18-18 108-126/62-69 98 GENERAL: The patient is awake, alert, and fully oriented, in no acute distress. HEAD: Normal with no signs of trauma. EYES: PERRL, extraocular movements intact, sclera anicteric, conjunctiva clear. No ptosis. ENT: Ears normal, nares patent, oropharynx clear without exudates, moist mucous membranes. NECK: Trachea midline, full range of motion, supple. LUNGS: Breath sounds equal, clear to auscultation bilaterally, no wheezes, no crackles, no accessory muscle use. HEART: Regular rate and rhythm, S1, S2 without murmur, rub or gallop. ABDOMEN: Soft, nontender, nondistended, normoactive bowel sounds, no guarding, no rebound, no hepatosplenomegaly, no masses. EXTREMITIES: 2+ pulses, warm, well-perfused, no edema. NEUROLOGICAL: Cranial nerves II through XII grossly intact. Normal speech, gait not observed. PSYCH: Normal mood, normal affect. SKIN: Warm, dry, normal turgor, no rashes or lesions noted Laboratory Results - last 24 hr 04/23/19 04/23/19 06:55 06:55 WBC 8.1 RBC 4.49 Hgb 13.6 Hct 40.4 MCV 89.8 MCH 30.2 MCHC 33.6 RDW 15.1 Plt Count 351 MPV 7.9 Absolute Neuts (auto) 5.7 Neutrophils % 70.6 Lymphocytes % 17.1 Monocytes % 10.4 H Eosinophils % 1.4 Basophils % 0.5 Nucleated RBC % 0 Sodium 136 Potassium 4.2 Chloride 102 Carbon Dioxide 28 Anion Gap 6 L BUN 16.7 Creatinine 0.8 Est GFR (CKD-EPI)AfAm 112.53 Est GFR (CKD-EPI)NonAf 97.10 Random Glucose 92 Calcium 9.2 Magnesium 2.3 Total Bilirubin 0.8 AST 14 L ALT 29 Alkaline Phosphatase 113 Total Protein 6.6 Albumin 3.7 Active Medications Generic Name Dose Route Start Last Admin Trade Name Freq PRN Reason Stop Dose Admin Acetaminophen/Butalbital/Caffeine 1 tablet 04/20/19 11:41 04/23/19 11:32 Fioricet - PO 1 tablet Q6H PRN Administration HEADACHE Docusate Sodium 200 mg 04/21/19 10:00 04/23/19 11:04 Colace - PO 200 mg DAILY [facility] Administration Losartan Potassium 50 mg 04/20/19 10:00 04/23/19 11:05 Cozaar - PO 50 mg DAILY [facility] Administration Melatonin 3 mg 04/22/19 14:27 04/22/19 23:07 Melatonin PO 3 mg HS K[facility]ALL Administration Metoprolol Succinate 25 mg 04/20/19 12:30 04/23/19 11:05 Toprol Xl - PO 25 mg DAILY [facility] Administration Montelukast Sodium 10 mg 04/19/19 22:00 04/22/19 21:10 Singulair - PO 10 mg HS [facility] Administration Nystatin 500,000 unit 04/20/19 15:30 04/23/19 06:30 Nystatin PO Not Given TID KENDALL Sodium Chloride 2 spray 04/23/19 12:43 [place] Nasal [place] - NS Q4H PRN NASAL CONGESTION Tamsulosin HCl 0.4 mg 04/20/19 22:00 04/22/19 21:09 Flomax - PO 0.4 mg HS K[facility] Administration Topiramate 25 mg 04/21/19 12:15 04/23/19 11:05 Topamax - PO 25 mg BID K[facility] Administration ASSESSMENT/PLAN: Problem List - Problems (1) Pleural effusion, left Code(s): J90 - PLEURAL EFFUSION, NOT ELSEWHERE CLASSIFIED (2) Lesion of lung Code(s): R91.1 - SOLITARY PULMONARY NODULE (3) Chronic systolic (congestive) heart failure Code(s): I50.22 - CHRONIC SYSTOLIC (CONGESTIVE) HEART FAILURE (4) Hypertension Code(s): I10 - ESSENTIAL (PRIMARY) HYPERTENSION (5) Weight decrease Code(s): R63.4 - ABNORMAL WEIGHT LOSS (6) Voice hoarseness Code(s): R49.0 - DYSPHONIA (7) Persistent headaches Code(s): R51 - HEADACHE
[2019-04-23] MEDS ORDERED: PT OWN MED DRAWER 7, Y5N ONE (13:14)
--- NOTE | 2019-04-23 13:20 | PN ---
Progress Note, [employer] - Note Progress Note: Selected Entries 04/19/19 04/19/19 04/19/19 11:45 14:32 17:19 Breakfast Lunch Temperature Blood Pressure 174/95 H Blood Pressure 155/96 156/90 [Left Arm] 04/19/19 04/20/19 04/20/19 22:43 00:00 10:00 Breakfast Lunch Temperature Blood Pressure 153/98 159/101 H Blood Pressure 141/78 [Left Arm] 04/22/19 04/22/19 04/22/19 05:40 10:00 14:00 Breakfast 100% Lunch 100% Temperature 97.5 F L 97.8 F 97.6 F Blood Pressure Blood Pressure [Left Arm] 04/22/19 04/22/19 04/23/19 18:00 22:00 06:00 Breakfast Lunch Temperature 97.7 F 98.5 F 97.0 F L Blood Pressure Blood Pressure [Left Arm] Laboratory Tests 04/20/19 04/23/19 07:25 06:55 WBC 5.2 8.1 Nystatin pill ordered. Tongue slightly better/less black? but difficult to visualize. Consider swish/swallow? Pending ENT consult to visualize hypopharynx/vocal cords r/o voical cord structure/function- Can be done as out pt.Ongoing since November Tolerating diet.
[2019-04-23 14:20] VITALS: BP 112/68; PULSE 78; TEMP 98.3
[2019-04-23 15:07] LABS: BODY FLUID ALBUMIN 2.1 g/dL (Not Estab.)
--- NOTE | 2019-04-23 15:28 | DS ---
Physical Exam: SUBJECTIVE: Patient seen and examined OBJECTIVE: Patient is a 59 year old male with a significant past medical history of Non- Hodgkin lymphoma in 1986 in remission s/p chemotherapy, BPH and hypertension. He reports that he has been having 3 weeks of diffuse head and neck pain and difficulty laying flat and feels as though he cannot get enough air when laying flat. Denies chest pain, but shortness of breath has progressively worsened and now sleeps sitting up most of the time. Chest ct 04/19/19 shows moderate left-sided pleural effusion, left-sided lung masses noted. He is s/p thoracentesis 04/20/2019 with 450cc/turbid fluid removed/analysis pending. Vital Signs Period Temp Pulse Resp BP Sys/Peck Pulse Ox Last 24 Hr 97.0 F-98.5 F 77-82 18-20 108-126/63-74 98-98 PHYSICAL EXAM GENERAL: Awake, alert, and fully oriented, in no acute distress. voice hoarseness/darkened tongue HEAD: Normal with no signs of trauma. EYES: Pupils equal, round and reactive to light, extraocular movements intact, sclera anicteric, conjunctiva clear. No lid lag. EARS, NOSE, THROAT: Ears normal, nares patent, oropharynx clear without exudates. Moist mucous membranes. NECK: Normal range of motion, supple without lymphadenopathy, JVD, or masses. LUNGS: Breath sounds equal, clear to auscultation bilaterally. diminished at the bases HEART: Regular rate and rhythm ABDOMEN: Soft, nontender, not distended, normoactive bowel sounds, no guarding, no rebound, no masses. No hepatomegaly or splenomegaly. MUSCULOSKELETAL: No CVA tenderness. UPPER EXTREMITIES: No peripheral edema. LOWER EXTREMITIES: No peripheral edema. NEUROLOGICAL: Normal speech. Normal gait. PSYCHIATRIC: Cooperative. Good eye contact. Appropriate mood and affect. SKIN: Warm, dry, normal turgor, no rashes or lesions noted, normal capillary refill. LABS Laboratory Results - last 24 hr 04/20/19 04/23/19 04/23/19 12:20 06:55 06:55 WBC 8.1 RBC 4.49 Hgb 13.6 Hct 40.4 MCV 89.8 MCH 30.2 MCHC 33.6 RDW 15.1 Plt Count 351 MPV 7.9 Absolute Neuts (auto) 5.7 Neutrophils % 70.6 Lymphocytes % 17.1 Monocytes % 10.4 H Eosinophils % 1.4 Basophils % 0.5 Nucleated RBC % 0 Sodium 136 Potassium 4.2 Chloride 102 Carbon Dioxide 28 Anion Gap 6 L BUN 16.7 Creatinine 0.8 Est GFR (CKD-EPI)AfAm 112.53 Est GFR (CKD-EPI)NonAf 97.10 Random Glucose 92 Calcium 9.2 Magnesium 2.3 Total Bilirubin 0.8 AST 14 L ALT 29 Alkaline Phosphatase 113 Total Protein 6.6 Albumin 3.7 Fluid Glucose 85 Fluid Total Protein 2.8 Fluid Albumin 2.1 Body Fluid LDH Source 147 Fluid Amylase 96 Fluid Triglycerides 14 HOSPITAL COURSE: Date of Admission:04/19/19 Date of Discharge: 04/23/19 Minutes to complete discharge: 45 Discharge Summary Problems reviewed: Yes Reason For Visit: PLEURAL EFFUSION ON LEFT Current Active Problems Chronic systolic (congestive) heart failure (Acute) H/O non-Hodgkin's lymphoma (Acute) Headache (Acute) Hypertension (Acute) Lesion of lung (Acute) Lung malignancy (Acute) Persistent headaches (Acute) Pleural effusion, left (Acute) Voice hoarseness (Acute) Weight decrease (Acute) Condition: Improved - Instructions Diet, Activity, Other Instructions: Patient w/o PCP. Made an appointment for him to be seen as follows New PCP: Dr. Ordaz @ [address] [place] [address] Date: April 24 Time: 1:00pm Bring: your discharge paper work. must call darian and change your PCP from Dr. Mcnamara to Dr. Ordaz before the appointment. Follow ups: Please follow up with Dr. Branham/Dr Silva cable way operator - You will need follow up for the thoracentesis/pleural fluid chemistries, cytology - pathology on the Thoracentesis that you had done here. Please see Dr. Cardenas for a stress test We have referred you to see a ENT specialist (see referral on discharge instructions) for your voice changes Please do not forget that you have an appointment tomorrow with your new PCP Dr. Ordaz and you will need to call Darian and designate him as your new PCP. Please do not miss this appointment Thank you for allowing us to care for you Referrals: Jefferson Cardenas MD [Staff Physician] - Ronny Ordaz MD [Staff Physician] - (You have an appointment with Dr. Ordaz 1:00pm. change your primary care doctor with darian by calling them and make a phone call naming Dr. Ordaz as your new PCP April [address] [facility] at 1:00pm) Jack Mark MD [Staff Physician] - Vahe Silva MD, MD [Staff Physician] - Disposition: HOME - Home Medications Comprehensive Discharge Medication List: Ambulatory Orders Ergocalciferol (Vitamin D2) [Vitamin D2] 1 tab PO WEEKLY 04/19/19 Losartan Potassium [Cozaar -] 50 mg PO DAILY 04/19/19 Montelukast Sodium [Singulair] 10 mg PO HS 04/19/19 Vitamin B Complex 1 tab PO DAILY 04/19/19 Tamsulosin HCl [Flomax] 0.4 mg PO DAILY 04/20/19 Docusate Sodium [Colace -] 200 mg PO DAILY capsule 04/23/19 Metoprolol Succinate [Toprol XL -] 25 mg PO DAILY #60 tab.sr.24h 04/23/19 Nystatin Oral Suspension - [Nystatin Oral Susp 833997 Units/5 ML -] 500,000 units PO Q6HPO #1 bottle 04/23/19 Sodium Chloride Nasal [place] [[place] Nasal [place] -] 2 spray NS Q12H PRN spray 04/23/19 Sodium Chloride Nasal [place] [[place] Nasal [place] -] 2 spray NS Q4H PRN #1 bottle 04/23/19 Topiramate [Topamax -] 25 mg PO BID #60 tablet 04/23/19 Problem List - Problems (1) Pleural effusion, left Assessment/Plan: Chest ct 04/19/19: moderate left-sided pleural effusion, left-sided lung masses noted. s/p thoracentesis 04/20/2019 with 450cc/turbid fluid removed/analysis pending. will need outpatient follow up (no pcp - new one assigned for next week tuesday) Will need PET scan as an outpatient Code(s): J90 - PLEURAL EFFUSION, NOT ELSEWHERE CLASSIFIED (2) Lesion of lung Assessment/Plan: Per chest CT, left sided lung mass noted with moderate left sided pleural effusion and lung lesions no airway compromise monitor vitals pulmonary consulted Code(s): R91.1 - SOLITARY PULMONARY NODULE (3) Chronic systolic (congestive) heart failure Assessment/Plan: Cont ARB, beta blockers. possible stress test as an outpatient Code(s): I50.22 - CHRONIC SYSTOLIC (CONGESTIVE) HEART FAILURE (4) Hypertension Assessment/Plan: patient non compliant with home medications. also reports he has not seen a PCP in some time. He is a poor follow up. Re-start home medications and made an appointment for PCP follow up Code(s): I10 - ESSENTIAL (PRIMARY) HYPERTENSION (5) Weight decrease Assessment/Plan: 10 lbs loss in 1 year per patient started on supplements, dietary consult Code(s): R63.4 - ABNORMAL WEIGHT LOSS (6) Voice hoarseness Assessment/Plan: etiology of voice hoarseness unclear no airway compromise speech and swallow eval ordered also has darkened tongue that appears to be fungal ent evaluation as outpatient on nystatin Code(s): R49.0 - DYSPHONIA (7) Persistent headaches Assessment/Plan: on florcet and topamax Code(s): R51 - HEADACHE This patient is new to me today: No Emergency Visit: Yes ED Registration Date: 04/19/19 Care time: The patient presented to the Emergency Department on the above date and was hospitalized for further evaluation of their emergent condition. Critical Care patient: No - Discharge Referral Referred to [facility] Med P.C.: No
--- NOTE | 2019-04-23 17:02 | PN ---
Progress Note (short form) - Note Progress Note: s: no cp sob palps dizzy Vital Signs Period Temp Pulse Resp BP Sys/Peck Pulse Ox Last 24 Hr 97.0 F-98.5 F 77-82 18-20 108-126/63-74 98-98 Constitutional: Yes: No Distress Respiratory: Yes: CTA Bilaterally Gastrointestinal: Yes: Soft Cardiovascular: Yes: Regular Rate and Rhythm JVD: No Carotid Bruit: No Heart Sounds: Yes: S1, S2 Peripheral Pulses WNL: Yes Neurological: Yes: Alert nsr , lbbb Imaging - Results Cat Scan: Report Reviewed EKG: Image Reviewed Assessment/Plan IMP: History NHL now with lef pleural effusion and lung masses Headaches LBBB (chronic as per patient) HTN chronic syst chf REC: 1. Work up of lung findings as per PMD, Onc and Pulm. s/p thoracentesis, results pending 2. Echo 04/2019 in office shows EF 30-35%, nl RV, normal valves. Vol stable here. 3. Cont ARB, bb for chf regimen. 4. Will consider and plan ischemic evaluation, likely with pharm MPI, depending on further work up of pleural effusion and lung masses - advised to follow up as outpatient stable for dc from cardiac perspective
[2019-04-23] MEDS ORDERED: NYSTATIN 500,000 UNITS/5 ML SUSPENSION PO SCH (18:00)
--- NOTE | 2019-04-26 14:57 | PATH ---
Cytology Non-Gynecological Report Patient Name: FRANCIA MEZA Med. Rec. #: [id number] /Age/Gender: 1960 (Age: 59) / M Account: [id number] Location: [address] [place] [address]/[facility] Taken: 04/20/2019 Received: 04/20/2019 Reported: 04/26/2019 Physicians: Leigh Blum Specimen(s) Received A: PLEURAL FLUID B: PLEURAL FLUID Clinical History Pleural effusion Final Diagnosis A-B. PLEURAL FLUID, LEFT, THORACENTESIS: SATISFACTORY FOR EVALUATION. NO MALIGNANT CELLS IDENTIFIED. MESOTHELIAL CELLS AND FEW LYMPHOCYTES PRESENT. Comment: Recommend correlation with clinical findings and follow up as clinically indicated. Electronically Signed Taisha Razo M.D. Gross Description A. Approximately 10 cc of yellow fluid received fixed in 50% alcohol. One cytofunnel prepared and Pap stained. One cellblock prepared. B. Approximately 350 cc of yellow fluid received fresh. One cytofunnel prepared and Pap stained. One cellblock prepared.
== END 2019-04-23 16:50 | disposition home or self-care (01) | DRG 194 ==
LOC: JER 11:27 → JERBED 15:11 → J5S 04-20 01:08
PROVIDERS: ADMIT Internal Medicine; ATTEND Nurse Practitioner Family
PROC: 0W9B3ZX Drainage of Left Pleural Cavity, Percutaneous Approach, Diagnostic (ICD-10-PCS; principal; 2019-04-20)
DX: I50.22 Chronic systolic (congestive) heart failure (principal); J90 Pleural effusion, not elsewhere classified; C85.90 Non-Hodgkin lymphoma, unspecified, unspecified site; I11.0 Hypertensive heart disease with heart failure; I44.7 Left bundle-branch block, unspecified; Z91.14 Patient's other noncompliance with medication regimen; R91.1 Solitary pulmonary nodule; R49.0 Dysphonia; R63.4 Abnormal weight loss; N40.0 Benign prostatic hyperplasia without lower urinary tract symptoms
CPT/HCPCS: 36415; 70450-TC; 71045-TC-FY; 71250-TC; 72125-TC; 76942; 80048; 80053; 80307; 81003; 82042; 82150; 82465; 82945; 83615; 83735; 83880; 83986; 84157; 84478; 84484; 85025; 85027; 85610; 85730; 86850; 86900; 86901; 87070; 87075; 87086; 87102; 87116; 87205; 87206; 87210; 90670; 93005; 93010; 94761; 99285-25; J0131; J7030